=== PATIENT | female | born 1990 | race Caucasian/White ===

== ENCOUNTER 2016-03-15 15:30 | Inpatient (IN) | payer MEDICAID ==
[~2016-03-15] VITALS: Ht 154.9 cm; Wt 53.5 kg
[~2016-03-15 15:30] MED LIST: ACET160S3 GT; ALBU2.5V38 IH; BISA10SU61 RC; CHOL100044 GT; DOCU50LI GT; FERR220S2 GT; HYDR-3326 GT; IPRA0.2S9 IH; LEVE100S GT; MAGN400O6 GT
[2016-03-15 16:19] LABS: BASOPHILS % (AUTO) 0.3 % (0.0-2.0); DIFF TOTAL % 100 %; EOSINOPHILS # (AUTO) 0.5 /CMM (0.0-0.7); EOSINOPHILS % (AUTO) 3.6 % (0.0-6.0); HEMATOCRIT 36 % (33-45); HEMOGLOBIN 12.2 g/dL (11.5-14.8); LYMPHOCYTES # (AUTO) 3.6 /CMM (0.8-4.8); LYMPHOCYTES % (AUTO) 27.9 % (20.0-44.0); MEAN CORPUSCULAR HEMOGLOBIN 32 PG (26.0-33.0); MEAN CORPUSCULAR HGB CONC 34 g/dl (31.0-36.0); MEAN CORPUSCULAR VOLUME 93 fL (82-100); MONOCYTES % (AUTO) 7.5 % (2.0-12.0); NEUTROPHILS # (AUTO) 7.9 /CMM (1.8-8.9); NEUTROPHILS % (AUTO) 60.7 % (43.0-81.0); PLATELET COUNT (AUTO) 564 /CMM (150-450); RED BLOOD CELL COUNT(AUTO) 3.88 MIL/uL (4.0-5.2)
[2016-03-15] MEDS ORDERED: IV NS 0.9% 1,000 ML ONE ×3 (16:27→19:43)
[2016-03-15] MEDS ORDERED: IV SET PRIMARY 1 EA INFUS.SET MC ONE ×3 (16:27→19:43)
[2016-03-15] MEDS ORDERED: ACETAMINOPHEN 650 MG/SUPP.RECT RC ONE ×2 (16:27→17:00)
[2016-03-15 16:28] LABS: ANION GAP 27 (5-14); CALCIUM, SERUM 10.6 mg/dL (8.5-10.1); CARBON DIOXIDE 18 mmol/L (21-32); CHLORIDE 91 mmol/L (98-107); CREATININE 0.7 mg/dL (0.6-1.3); GFR 102 mL/min (>60); GLUCOSE 149 mg/dL (74-106); POTASSIUM 4.9 mmol/L (3.5-5.1); SODIUM SERUM 131 mmol/L (136-145); UREA NITROGEN, BLOOD 10 mg/dL (7-18)
[2016-03-15] MEDS ORDERED: IV NS 0.9% 1,000 ML BAG IV ONE ×3 (16:30→17:00)
[2016-03-15] MEDS ORDERED: LORAZEPAM INJ 2 MG/ML VIAL IV ONE ×2 (16:30→17:00)
[2016-03-15] MEDS ORDERED: LEVETIRACETAM (500MG) 500 MG in IV NS 0.9% 100 ML IV SCH (16:30)
[2016-03-15] MEDS ORDERED: LORAZEPAM INJ 2 MG/ML VIAL ONE (16:31)
[2016-03-15 16:32] LABS: INR 1.03 (0.87-1.13); PROTHROMBIN TIME 10.8 SECS (9.5-12.7)
[2016-03-15 16:34] LABS: ALANINE AMINOTRANSFERASE 52 U/L (12-78); ALBUMIN 3.6 g/dL (3.4-5.0); ASPARTATE AMINOTRANSFERASE 17 U/L (15-37); BILIRUBIN,TOTAL 0.2 mg/dL (0.2-1.0); INDIRECT BILIRUBIN 0.2 mg/dL (0.0-1.1); TOTAL PROTEIN, SERUM 9.1 g/dL (6.4-8.2)
[2016-03-15 16:37] LABS: TROPONIN I < 0.017 ng/mL (0.00-0.056)
[2016-03-15 16:56] LABS: LACTIC ACID 13.1 mmol/L (0.4-2.0)
[2016-03-15] MEDS ORDERED: IV SET PRIMARY PUMP SET 1 EA INFUS.SET MC ONE (16:59)
[2016-03-15] MEDS ORDERED: VANCOMYCIN 1 GM in IV D5W 250 ML IV ONE (17:00)
[2016-03-15] MEDS ORDERED: PIPERACILLIN /TAZOBACTAM 3.375 G in IV D5W 50 ML IV ONE (17:00)
[2016-03-15] MEDS: LEVETIRACETAM (500MG) 500 MG in IV NS 0.9% 100 ML IV SCH (17:06)
[2016-03-15 17:14] LABS: *LACTIC ACID REFLEX FLAG YES
[2016-03-15 18:15] LABS: KETONES,URINE Negative (NEGATIVE); LEUKOCYTE ESTERASE ,URINE Small (NEGATIVE); PH,URINE 7.5 (5.0-8.0)
[2016-03-15 18:16] LABS: ADD UA MICROSCOPIC YES
[2016-03-15 18:28] LABS: RBC,URINE 0-2 /HPF (0-2)
[2016-03-15 18:29] LABS: ADD URINE CULTURE YES
[2016-03-15 20:00] VITALS: BP 102/65
[2016-03-15 20:30] VITALS: BP 102/65
[2016-03-15] MEDS ORDERED: IV D5/0.45 NACL 1,000 ML IV PRN (23:30)
[2016-03-16] VITALS: BP 96/65
[2016-03-16] MEDS ORDERED: PIPERACILLIN /TAZOBACTAM 3.375 G VIAL IV ONE ×2 (00:08→04:53)
[2016-03-16] MEDS ORDERED: SECONDARY IV SET 1 EA INFUS.SET MC ONE (00:11)
[2016-03-16] MEDS ORDERED: IV D5W 50 ML IV ONE ×2 (00:11→04:53)
[2016-03-16] MEDS ORDERED: FIBERSOURCE HN 1,000 ML BOTTLE ONE (00:30)
[2016-03-16] MEDS ORDERED: IV D5/0.45 NACL 1,000 ML IV ONE (00:34)
[2016-03-16] MEDS ORDERED: IV SET PRIMARY PUMP SET 1 EA INFUS.SET MC ONE ×3 (00:34→16:50)
[2016-03-16] MEDS: PIPERACILLIN /TAZOBACTAM 3.375 G in IV D5W 50 ML IV SCH ×4 (00:49→18:06)
[2016-03-16 04:00] VITALS: BP 95/56
[2016-03-16] MEDS ORDERED: LEVETIRACETAM (500MG) 500 MG/5 ML VIAL IV ONE (05:46)
[2016-03-16] MEDS ORDERED: IV NS 0.9% 100 ML IV ONE (05:49)
[2016-03-16] MEDS: LEVETIRACETAM (500MG) 500 MG in IV NS 0.9% 100 ML IV SCH (05:52)
[2016-03-16 06:31] LABS: BASOPHILS % (AUTO) 0.3 % (0.0-2.0); EOSINOPHILS # (AUTO) 0.3 /CMM (0.0-0.7); HEMATOCRIT 30 % (33-45); HEMOGLOBIN 10.2 g/dL (11.5-14.8); LYMPHOCYTES # (AUTO) 1.4 /CMM (0.8-4.8); LYMPHOCYTES % (AUTO) 13.5 % (20.0-44.0); MEAN CORPUSCULAR HEMOGLOBIN 32 PG (26.0-33.0); MEAN CORPUSCULAR HGB CONC 34 g/dl (31.0-36.0); MEAN CORPUSCULAR VOLUME 94 fL (82-100); MONOCYTES # (AUTO) 0.8 /CMM (0.1-1.30); MONOCYTES % (AUTO) 8.2 % (2.0-12.0); NEUTROPHILS # (AUTO) 7.5 /CMM (1.8-8.9); PLATELET COUNT (AUTO) 479 /CMM (150-450); RED BLOOD CELL COUNT(AUTO) 3.21 MIL/uL (4.0-5.2)
[2016-03-16 06:51] LABS: ALBUMIN 2.9 g/dL (3.4-5.0); BILIRUBIN,TOTAL 0.1 mg/dL (0.2-1.0); CALCIUM, SERUM 9.4 mg/dL (8.5-10.1); CREATININE 0.5 mg/dL (0.6-1.3); POTASSIUM 3.9 mmol/L (3.5-5.1); TOTAL PROTEIN, SERUM 7.3 g/dL (6.4-8.2)
[2016-03-16 06:57] LABS: DIFF TOTAL % 100 %
[2016-03-16 07:53] LABS: KETONES,URINE NEGATIVE (NEGATIVE); LEUKOCYTE ESTERASE ,URINE 1+ (NEGATIVE)
[2016-03-16 08:00] VITALS: BP 103/64
[2016-03-16 08:08] LABS: ADD UA MICROSCOPIC YES
[2016-03-16 08:15] LABS: INDIRECT BILIRUBIN 0.1 mg/dL (0.0-1.1)
[2016-03-16 09:00] LABS: ADD URINE CULTURE YES; RBC,URINE NONE SEEN /HPF (0-2)
[2016-03-16] MEDS ORDERED: Z GUARD REMEDY 2 OZ OINT TP PRN (09:00)
[2016-03-16] MEDS: VANCOMYCIN 0.75 GM in IV D5W 250 ML IV SCH ×2 (09:10→16:50)
[2016-03-16] MEDS: Z GUARD REMEDY 2 OZ OINT TP SCH ×2 (11:33→16:58)
[2016-03-16] MEDS ORDERED: BISACODYL SUPP (10 MG) 10 MG/SUPP.RECT SUPP.RECT RC PRN (13:00)
[2016-03-16] MEDS ORDERED: IPRATROPIUM NEB FS 0.5 MG/2.5 ML AMPUL.NEB IH PRN (13:00)
[2016-03-16] MEDS ORDERED: MAGNESIUM HYDROXIDE 30 ML UDC GT PRN (13:00)
[2016-03-16] MEDS ORDERED: HYDROCODONE/APAP 5/325MG 1 EACH TABLET GT PRN (13:00)
[2016-03-16] MEDS ORDERED: ACETAMINOPHEN 650 MG/20.3 ML UDC GT PRN (13:00)
[2016-03-16] MEDS ORDERED: ALBUTEROL FS 2.5 MG/3 ML VIAL.NEB IH PRN (13:00)
[2016-03-16] MEDS: FERROUS SULFATE UDC 300 MG/5 ML UDC GT SCH ×2 (14:40→17:56)
[2016-03-16] MEDS: IPRATROPIUM NEB FS 0.5 MG/2.5 ML AMPUL.NEB IH SCH ×2 (15:21→19:38)
[2016-03-16] MEDS: ALBUTEROL FS 2.5 MG/3 ML VIAL.NEB IH SCH ×2 (15:22→19:38)
[2016-03-16] MEDS ORDERED: FEE PK DOSING 1 MIN EA MC ONE (15:35)
[2016-03-16 16:00] VITALS: BP 117/71
[2016-03-16] MEDS: LEVETIRACETAM SOL (5 ML) 100 MG/ML UDC GT SCH (16:53)
[2016-03-16 20:00] VITALS: BP 112/73
[2016-03-17] VITALS: BP 103/64
[2016-03-17] MEDS: PIPERACILLIN /TAZOBACTAM 3.375 G in IV D5W 50 ML IV SCH ×4 (00:08→18:00)
[2016-03-17] MEDS ORDERED: SECONDARY IV SET 1 EA INFUS.SET MC ONE ×3 (00:18→22:17)
[2016-03-17] MEDS ORDERED: IV NS 0.9% 250 ML IV ONE (00:18)
[2016-03-17] MEDS: VANCOMYCIN 0.75 GM in IV D5W 250 ML IV SCH ×3 (01:17→17:00)
[2016-03-17] MEDS: IPRATROPIUM NEB FS 0.5 MG/2.5 ML AMPUL.NEB IH SCH ×4 (01:43→19:57)
[2016-03-17] MEDS: ALBUTEROL FS 2.5 MG/3 ML VIAL.NEB IH SCH ×4 (01:43→19:57)
[2016-03-17 04:00] VITALS: BP 108/69
[2016-03-17] MEDS ORDERED: FIBERSOURCE HN 1,000 ML BOTTLE ONE (04:36)
[2016-03-17] MEDS: FIBERSOURCE HN 1,000 ML BOTTLE GT PRN (04:42)
[2016-03-17 08:00] VITALS: BP 110/73
[2016-03-17 08:08] LABS: BASOPHILS % (AUTO) 0.3 % (0.0-2.0); DIFF TOTAL % 100 %; EOSINOPHILS # (AUTO) 0.4 /CMM (0.0-0.7); EOSINOPHILS % (AUTO) 3.8 % (0.0-6.0); HEMATOCRIT 30 % (33-45); HEMOGLOBIN 10.3 g/dL (11.5-14.8); LYMPHOCYTES # (AUTO) 1.3 /CMM (0.8-4.8); LYMPHOCYTES % (AUTO) 13.4 % (20.0-44.0); MEAN CORPUSCULAR HEMOGLOBIN 32 PG (26.0-33.0); MEAN CORPUSCULAR HGB CONC 34 g/dl (31.0-36.0); MEAN CORPUSCULAR VOLUME 93 fL (82-100); MONOCYTES # (AUTO) 0.7 /CMM (0.1-1.30); MONOCYTES % (AUTO) 6.7 % (2.0-12.0); NEUTROPHILS # (AUTO) 7.6 /CMM (1.8-8.9); NEUTROPHILS % (AUTO) 75.8 % (43.0-81.0); PLATELET COUNT (AUTO) 524 /CMM (150-450); RED BLOOD CELL COUNT(AUTO) 3.26 MIL/uL (4.0-5.2)
[2016-03-17 08:21] LABS: CALCIUM, SERUM 9.8 mg/dL (8.5-10.1); CREATININE 0.6 mg/dL (0.6-1.3); POTASSIUM 4.1 mmol/L (3.5-5.1)
[2016-03-17] MEDS: DOCUSATE SODIUM LIQ 100 MG/10 ML UDC GT SCH (08:50)
[2016-03-17] MEDS: CHOLECALCIFEROL 1,000 UNIT TABLET (VIT D3) GT SCH (08:50)
[2016-03-17] MEDS: LEVETIRACETAM SOL (5 ML) 100 MG/ML UDC GT SCH ×2 (08:50→17:00)
[2016-03-17] MEDS: Z GUARD REMEDY 2 OZ OINT TP SCH ×2 (08:50→17:00)
[2016-03-17] MEDS: FERROUS SULFATE UDC 300 MG/5 ML UDC GT SCH ×3 (08:50→17:00)
[2016-03-17 16:00] VITALS: BP 116/81
[2016-03-17 20:00] VITALS: BP 105/62
[2016-03-17] MEDS ORDERED: IMIPENEM/CILASTATIN 500 MG/VIAL IV ONE (22:59)
[2016-03-17] MEDS ORDERED: IV NS 0.9% 100 ML IV ONE (23:02)
[2016-03-17] MEDS: IMIPENEM/CILASTATIN 500 MG in IV NS 0.9% 100 ML IV SCH (23:13)
[2016-03-18] MEDS: FIBERSOURCE HN 1,000 ML BOTTLE GT PRN (00:31)
[2016-03-18] MEDS: VANCOMYCIN 0.75 GM in IV D5W 250 ML IV SCH ×3 (01:29→17:37)
[2016-03-18] MEDS: IPRATROPIUM NEB FS 0.5 MG/2.5 ML AMPUL.NEB IH SCH ×3 (01:47→14:00)
[2016-03-18] MEDS: ALBUTEROL FS 2.5 MG/3 ML VIAL.NEB IH SCH ×3 (01:47→14:01)
[2016-03-18] MEDS ORDERED: IMIPENEM/CILASTATIN 500 MG/VIAL IV ONE (04:35)
[2016-03-18] MEDS ORDERED: IV NS 0.9% 100 ML IV ONE (04:38)
[2016-03-18] MEDS: IMIPENEM/CILASTATIN 500 MG in IV NS 0.9% 100 ML IV SCH (04:55)
[2016-03-18] MEDS ORDERED: IMIPENEM/CILASTATIN 500 MG in IV NS 0.9% 100 ML IV SCH (05:00)
[2016-03-18 06:45] LABS: BASOPHILS % (AUTO) 0.2 % (0.0-2.0); DIFF TOTAL % 100 %; EOSINOPHILS # (AUTO) 0.5 /CMM (0.0-0.7); EOSINOPHILS % (AUTO) 3.6 % (0.0-6.0); HEMATOCRIT 32 % (33-45); HEMOGLOBIN 10.9 g/dL (11.5-14.8); LYMPHOCYTES # (AUTO) 1.7 /CMM (0.8-4.8); LYMPHOCYTES % (AUTO) 13.3 % (20.0-44.0); MEAN CORPUSCULAR HEMOGLOBIN 32 PG (26.0-33.0); MEAN CORPUSCULAR HGB CONC 34 g/dl (31.0-36.0); MEAN CORPUSCULAR VOLUME 94 fL (82-100); MONOCYTES # (AUTO) 0.9 /CMM (0.1-1.30); MONOCYTES % (AUTO) 7.3 % (2.0-12.0); NEUTROPHILS # (AUTO) 9.4 /CMM (1.8-8.9); NEUTROPHILS % (AUTO) 75.6 % (43.0-81.0); PLATELET COUNT (AUTO) 638 /CMM (150-450); WHITE BLOOD COUNT (AUTO) 12.4 K/uL (4.3-11.0)
[2016-03-18 07:01] LABS: CALCIUM, SERUM 9.7 mg/dL (8.5-10.1); CREATININE 0.5 mg/dL (0.6-1.3); POTASSIUM 4.1 mmol/L (3.5-5.1)
[2016-03-18 08:00] VITALS: BP_SYST 110; BP_DIAS 56; BP_DIAS 86
[2016-03-18] MEDS: CHOLECALCIFEROL 1,000 UNIT TABLET (VIT D3) GT SCH (09:33)
[2016-03-18] MEDS: DOCUSATE SODIUM LIQ 100 MG/10 ML UDC GT SCH (09:33)
[2016-03-18] MEDS: LEVETIRACETAM SOL (5 ML) 100 MG/ML UDC GT SCH ×2 (09:33→17:37)
[2016-03-18] MEDS: Z GUARD REMEDY 2 OZ OINT TP SCH ×2 (09:34→17:38)
[2016-03-18] MEDS: FERROUS SULFATE UDC 300 MG/5 ML UDC GT SCH ×3 (09:39→17:37)
[2016-03-18] MEDS ORDERED: MEROPENEM 500 MG in IV NS 0.9% 50 ML IV SCH (13:00)
[2016-03-18 16:00] VITALS: BP 108/81
== END 2016-03-18 19:00 | DRG 720 ==
LOC: ER 15:32 → TELE 18:37 → MED 03-17 08:55
PROVIDERS: ADMIT Internal Medicine Rheumatology; ATTEND Internal Medicine Rheumatology
DX: A41.9 Sepsis, unspecified organism (principal); Z93.0 Tracheostomy status; I10 Essential (primary) hypertension; G40.909 Epilepsy, unspecified, not intractable, without status epilepticus; Z87.820 Personal history of traumatic brain injury; Z93.1 Gastrostomy status
CPT/HCPCS: 31720; 36415; 71010-TC; 80048-TC; 80076-TC; 80202-TC; 81000-TC; 83605-TC; 84484-TC; 85025-TC; 85730-TC; 87040-TC; 87070-TC; 87081-TC; 87086-TC; 87186-TC; 87400; 94640-TC; 94799-TC; 97001-TC; 97003-TC; A4216; A4606; A6402; J0743; J1953; J2060; J2185; J2543; J3370; J3490; J7030; J7050; J7060; Z7610

== ENCOUNTER 2016-06-13 08:01 | Inpatient (IN) | payer MEDICAID ==
[~2016-06-13] VITALS: Ht 160 cm; Wt 58.1 kg
[~2016-06-13 08:01] MED LIST changes: -ACET160S3 GT; +ACET650S26 GT
--- NOTE | 2016-06-13 08:12 | NUR ---
BBRA FROM [facility]: S/P WITNESSED SEIZURE. MVVFK=926.9 rectal temp. G-tube is intact with no s/s of infection. Skin is warm and non diaphoretic. Resp is even and unlabored with nad noted. IVHL left wrist 22g noted CAN FILLING AND CLOSING MACHINE TENDER. Dr Fernández at BS for eval.
[2016-06-13] MEDS ORDERED: IV SET PRIMARY 1 EA INFUS.SET MC ONE (08:29)
[2016-06-13] MEDS ORDERED: IV NS 0.9% 2,000 ML ONE (08:29)
[2016-06-13] MEDS ORDERED: ACETAMINOPHEN ES 500 MG TABLET ONE (08:29)
[2016-06-13] MEDS ORDERED: IV SET PRIMARY PUMP SET 1 EA INFUS.SET MC ONE ×2 (08:29→14:22)
[2016-06-13] MEDS ORDERED: CEFTRIAXONE 1GM BAG (ER ONLY) 50 ML IV ONE ×2 (08:30)
[2016-06-13] MEDS ORDERED: IV NS 0.9% 1,000 ML BAG IV ONE (08:30)
[2016-06-13] MEDS ORDERED: LEVOFLOXACIN 750 MG /D5W 150ML 150 ML IV ONE ×2 (08:30→09:53)
[2016-06-13] MEDS ORDERED: VANCOMYCIN 1 GM in IV D5W 250 ML IV ONE (08:30)
[2016-06-13] MEDS ORDERED: ACETAMINOPHEN ES 500 MG TABLET GT ONE (08:30)
[2016-06-13 08:53] LABS: BASOPHILS % (AUTO) 0.2 % (0.0-2.0); EOSINOPHILS # (AUTO) 0.1 /CMM (0.0-0.7); EOSINOPHILS % (AUTO) 0.5 % (0.0-6.0); HEMATOCRIT 40 % (33-45); HEMOGLOBIN 13.6 g/dL (11.5-14.8); LYMPHOCYTES # (AUTO) 1.6 /CMM (0.8-4.8); LYMPHOCYTES % (AUTO) 10.1 % (20.0-44.0); MEAN CORPUSCULAR HEMOGLOBIN 31 PG (26.0-33.0); MEAN CORPUSCULAR HGB CONC 34 g/dl (31.0-36.0); MEAN CORPUSCULAR VOLUME 91 fL (82-100); MONOCYTES # (AUTO) 0.7 /CMM (0.1-1.30); MONOCYTES % (AUTO) 4.7 % (2.0-12.0); NEUTROPHILS # (AUTO) 13.2 /CMM (1.8-8.9); NEUTROPHILS % (AUTO) 84.5 % (43.0-81.0); PLATELET COUNT (AUTO) 251 /CMM (150-450); RDW COEFFICIENT OF VARIATION 14.3 (11.5-15.0); RED BLOOD CELL COUNT(AUTO) 4.44 MIL/uL (4.0-5.2); WHITE BLOOD COUNT (AUTO) 15.6 K/uL (4.3-11.0)
[2016-06-13 08:59] LABS: APPEARANCE,URINE CLOUDY (CLEAR); BILIRUBIN,URINE NEGATIVE (NEGATIVE); BLOOD, URINE TRACE-INTA Ery/uL (NEGATIVE); COLOR,URINE YELLOW (YELLOW); KETONES,URINE NEGATIVE (NEGATIVE); LEUKOCYTE ESTERASE ,URINE 2+ (NEGATIVE); NITRITE, URINE POSITIVE (NEGATIVE); PH,URINE 6.5 (5.0-8.0); PROTEIN,URINE NEGATIVE (NEGATIVE); UGLUCOSE NEGATIVE (NEGATIVE); UROBILINOGEN,URINE 0.2 EU/dL (0.2)
[2016-06-13 09:03] LABS: CARBON DIOXIDE 30 mmol/L (21-32); CHLORIDE 96 mmol/L (98-107); CREATININE 0.7 mg/dL (0.6-1.3); GFR 101 mL/min (>60); GLUCOSE 79 mg/dL (74-106); POTASSIUM 3.3 mmol/L (3.5-5.1); SODIUM SERUM 133 mmol/L (136-145); UREA NITROGEN, BLOOD 10 mg/dL (7-18)
[2016-06-13 09:12] LABS: TROPONIN I < 0.017 ng/mL (0.00-0.056)
[2016-06-13 09:14] LABS: ADD URINE CULTURE YES; BACTERIA,URINE Moderate /HPF (None Seen); MUCUS,URINE Rare /LPF (None Seen); SQUAMOUS EPITHELIAL CELL,UR Few /HPF (None Seen)
--- NOTE | 2016-06-13 09:14 | NUR ---
Patient came back from CT via gurney. Patient remains in stable condition at this time.
[2016-06-13 09:15] LABS: PROTHROMBIN TIME 10.7 SECS (9.5-12.7)
[2016-06-13 09:19] LABS: LACTIC ACID 1.7 mmol/L (0.4-2.0)
[2016-06-13 09:25] LABS: ALANINE AMINOTRANSFERASE 77 U/L (12-78); ALBUMIN 3.8 g/dL (3.4-5.0); ALKALINE PHOSPHATASE 84 U/L (46-116); ASPARTATE AMINOTRANSFERASE 39 U/L (15-37); BILIRUBIN,DIRECT 0.1 mg/dL (0.0-0.2); BILIRUBIN,TOTAL 0.2 mg/dL (0.2-1.0); TOTAL PROTEIN, SERUM 8.3 g/dL (6.4-8.2)
--- NOTE | 2016-06-13 09:53 | NUR ---
REPORT GIVEN TO JOSE HALE FOR JENI TELE [phone]
[2016-06-13] MEDS ORDERED: CLON0.1T GT (10:06)
[2016-06-13] MEDS ORDERED: CRAN3875 GT (10:06)
[2016-06-13] MEDS ORDERED: NA P133E RC (10:06)
[2016-06-13] MEDS ORDERED: DEXA2TAB GT (10:06)
[2016-06-13] MEDS ORDERED: LACT-209 GT (10:06)
[2016-06-13] MEDS ORDERED: METO25TA6 GT (10:06)
[2016-06-13] MEDS ORDERED: OXCA600T5 GT (10:06)
[2016-06-13] MEDS ORDERED: LORA1TAB GT (10:06)
[2016-06-13] MEDS ORDERED: ACET650S26 GT (10:06)
--- NOTE | 2016-06-13 11:12 | NUR ---
CALLED NURSING STAB SETTER AND DRILLER FOR DO BED
--- NOTE | 2016-06-13 11:16 | NUR ---
LEFT MESSAGE ON DR MISAEL MADDOX'S CELL
--- NOTE | 2016-06-13 11:30 | NUR ---
DR NARVAEZ ON THE PHONE WITH DR MISAEL MADDOX
--- NOTE | 2016-06-13 11:37 | NUR ---
called for report, JOSE Prescott not available at the moment for report. Will call back in 15 minutes.
--- NOTE | 2016-06-13 11:50 | NUR ---
Report given to JOSE Prescott by JOSE Jacob for JENI DO 103
[2016-06-13] MEDS ORDERED: LORAZEPAM INJ 2 MG/ML VIAL ONE (13:45)
[2016-06-13] MEDS ORDERED: SECONDARY IV SET 1 EA INFUS.SET MC ONE (14:21)
[2016-06-13] MEDS ORDERED: IV D5/0.45 NACL 1,000 ML IV PRN (14:30)
[2016-06-13] MEDS ORDERED: Z GUARD REMEDY 2 OZ OINT TP PRN (14:30)
[2016-06-13] MEDS ORDERED: FEE PK DOSING 1 MIN EA MC ONE (14:56)
[2016-06-13] MEDS ORDERED: MAGNESIUM HYDROXIDE 30 ML UDC GT PRN (15:00)
[2016-06-13] MEDS ORDERED: BISACODYL SUPP (10 MG) 10 MG/SUPP.RECT SUPP.RECT RC PRN (15:00)
[2016-06-13] MEDS ORDERED: IPRATROPIUM NEB FS 0.5 MG/2.5 ML AMPUL.NEB IH PRN (15:00)
[2016-06-13] MEDS ORDERED: NA PHOS,M-B/NA PHOS,DI-BA 1 EA ENEMA RC PRN (15:00)
[2016-06-13] MEDS ORDERED: ALBUTEROL FS 2.5 MG/3 ML VIAL.NEB IH PRN (15:00)
[2016-06-13] MEDS ORDERED: CLONIDINE HCL 0.1 MG TABLET GT PRN (15:00)
[2016-06-13] MEDS: LEVETIRACETAM SOL (5 ML) 100 MG/ML UDC GT SCH ×2 (15:09→20:14)
[2016-06-13] MEDS: OXCARBAZEPINE 150 MG TABLET GT SCH ×2 (15:09→20:10)
[2016-06-13] MEDS: CEFEPIME 1 GM in IV D5W 50 ML IV SCH (15:35)
[2016-06-13] MEDS: PROSOURCE / PROSTAT (PYXIS) 30 ML UDC GT SCH (15:35)
[2016-06-13] MEDS: METRONIDAZOLE 500MG/ NS 100ML 500 MG in PREMIX 1 EA IV SCH (15:35)
[2016-06-13 16:00] VITALS: BP 96/56
[2016-06-13 16:18] VITALS: BP 96/56
[2016-06-13] MEDS ORDERED: OXCARBAZEPINE 600 MG GT SCH (17:00)
[2016-06-13] MEDS: VANCOMYCIN 0.75 GM in IV D5W 250 ML IV SCH (17:26)
--- NOTE | 2016-06-13 18:25 | NUR ---
HIDE PASTER PT IS VERY CONTRACTED UNABLE TO PROPERLY OFF LOAD EXTREMITIES DID MY BEST ELEVATING LOWER EXTREMITIES ON SEVERAL PILLOWS AND PLACED PILLOWS UNDER UPPER ARMS TO OFF LOAD
[2016-06-13] MEDS: ALBUTEROL FS 2.5 MG/3 ML VIAL.NEB IH SCH (19:37)
[2016-06-13] MEDS: IPRATROPIUM NEB FS 0.5 MG/2.5 ML AMPUL.NEB IH SCH (19:37)
[2016-06-13 20:00] VITALS: BP 111/68
[2016-06-13] MEDS: ACETAMINOPHEN 650 MG/20.3 ML UDC GT PRN (20:09)
[2016-06-13 22:00] VITALS: BP 137/77
[2016-06-14] VITALS: BP 137/77
[2016-06-14] MEDS: METRONIDAZOLE 500MG/ NS 100ML 500 MG in PREMIX 1 EA IV SCH ×4 (00:12→23:30)
[2016-06-14] MEDS: CEFEPIME 1 GM in IV D5W 50 ML IV SCH ×3 (00:12→16:45)
--- NOTE | 2016-06-14 00:53 | NUR ---
RN NOTE. INITIAL ASSESSMENT. RECEIVED THE PT REST ON THE BED. TRACH TO VENT CONNECTED. PORTEX#7,OXYGEN T PIECE CONNECTED . SAT 98% TRUCK DRIVING INSTRUCTOR SHOWING S TACH.TEMPERATURE 100.NPO. IV RT HAND 18G AND 22G. IVF D51/2NS 100ML/H,HOB ELEVATED. TURN AND REPOSITION Q2H. WILL CONTINUE TO MONITOR VITALS.
[2016-06-14] MEDS: IPRATROPIUM NEB FS 0.5 MG/2.5 ML AMPUL.NEB IH SCH ×4 (01:07→19:52)
[2016-06-14] MEDS: ALBUTEROL FS 2.5 MG/3 ML VIAL.NEB IH SCH ×4 (01:07→19:52)
[2016-06-14] MEDS: OXCARBAZEPINE 150 MG TABLET GT SCH ×3 (02:51→20:00)
[2016-06-14] MEDS: VANCOMYCIN 0.75 GM in IV D5W 250 ML IV SCH ×2 (02:52→10:14)
--- NOTE | 2016-06-14 03:38 | NUR ---
RN NOTE AM CARE. ORAL CARE, BED BATH GIVEN. LINEN CHANGED. REMAINING SAME OXYGEN TOLERATED WELL, SAT 98%. NO ACUTE DISTRESS NOTED. LABORATORY PHLEBOTOMIST SHOWING NSR. IV RT HAND 22G. IVF D51/2NS 100ML/H.GT CLAMPED. HOB ELEVATED. TURN AND REPOSITION Q2H. WILL CONTINUE TO MONITOR VITALS. 3TIMES FOCAL SEIZURE NOTED. LAST 4SECONDS.
[2016-06-14 04:00] VITALS: BP_SYST 132; BP_SYST 135; BP_DIAS 60; BP_DIAS 74
[2016-06-14] MEDS: ACETAMINOPHEN 650 MG/20.3 ML UDC GT PRN ×3 (04:57→20:00)
[2016-06-14] MEDS: LEVETIRACETAM SOL (5 ML) 100 MG/ML UDC GT SCH ×3 (04:57→20:31)
--- NOTE | 2016-06-14 07:00 | NUR ---
DO INITIAL NOTE- RECEIVED PT OBTUNDED, OPENS EYES BUT DOES NOT FOLLOW COMMANDS. ON T-PIECE, FIO2 28%. TELE MONITOR REVEALS SINUS TACHYCARDIA, HR= 115. PT INCONTINENT OF URINE & STOOL, DIAPER CLEAN & DRY. G-TUBE PRESENT AND CURRENTLY CLAMPED. TWO IVS PRESENT: 1) RFA 18G HL AND 2) RIGHT HAND 22G RUNNING D5 1/2NS @ 100 MLS/HR. SAFETY MEASURES TAKEN: BED LOCKED AND IN LOW POSITION, SIDE RAILS UP X2 AND BED ALARM ON, WILL CONTINUE TO MONITOR.
[2016-06-14] MEDS ORDERED: SECONDARY IV SET 1 EA INFUS.SET MC ONE ×2 (07:57→10:08)
[2016-06-14 08:00] VITALS: BP 129/57
[2016-06-14] MEDS: PROSOURCE / PROSTAT (PYXIS) 30 ML UDC GT SCH ×2 (08:02→16:45)
[2016-06-14] MEDS: CHOLECALCIFEROL 1,000 UNIT TABLET (VIT D3) GT SCH (08:03)
[2016-06-14 08:34] LABS: CALCIUM, SERUM 8.5 mg/dL (8.5-10.1); CREATININE 0.5 mg/dL (0.6-1.3); POTASSIUM 3.3 mmol/L (3.5-5.1)
[2016-06-14] MEDS ORDERED: IV D5/ 0.9% NACL 1,000 ML IV PRN (10:30)
--- NOTE | 2016-06-14 10:35 | NUR ---
WOUND CARE CONSULT: PT PRESENTS WITH INTACT SKIN AND LARGE AREAS OF SCARRING TO LEGS. PT IS INCONTINENT AND IMMOBILE WITH LOWER EXTREMITY CONTRACTURES. PT IS TRACH DEPENDENT. FIRST STEP MATTRESS ORDERED. PT TO BE TURNED AND REPOSITIONED EVERY 2 HRS PT CONDITION PERMITS, HEELS FLOATED. ALL SKIN PROTECTION RECOMMENDATIONS DISCUSSED WITH NURSING STAFF. MD IN AGREEMENT WITH PLAN OF CARE. Addendum: 06/14/16 at 1037 by DENICE HICKMAN WNDNU Amended: Links added.
[2016-06-14] MEDS ORDERED: POTASSIUM CHLORIDE 20 MEQ POWDER PACKET NG SCH (11:00)
--- NOTE | 2016-06-14 11:00 | NUR ---
PT HYPERVENTILATION. O2 SATS AT 95% ON T-PIECE, FI02 OF 28%. STAT ABG DONE BY RT WITH RESULTS: 1) PH= 7.40, PaCO2- 29.1, PAo2- 66.7, Hco3- 17.9. RT INFORMED DR. MCGOVERN WITH NO NEW ORDERS AT THIS TIME. WILL CONTINUE TO MONITOR.
[2016-06-14 12:00] VITALS: BP 146/80
--- NOTE | 2016-06-14 13:00 | NUR ---
CALLED AND SPOKE TO DR. MADDOX, UPDATED HIM ON PT'S CURRENT CONDITION: 1) PT TACHYCARDIC, HR RANGING [id number]. INFORMED MD OF PT'S CURRENT TEMP AT 12 PM (100.2) AND TYLENOL/ ICE PACKS WERE GIVEN. PT TACHYPNEIC, RESPIRATIONS 30 BREATHS/MIN. OBTAINED ONE TIME ORDER FOR ATIVAN 1 MG STAT. 2) INFORMED MD PT HAD 2 EPISODES OF VOMITING LAST NIGHT ( ENDORSED BY PREVIOUS NURSE), NO EPISODES OF VOMITING DURING MY SHIFT. OBTAINED ORDER FOR ZOFRAN 4 MG IVP Q4H PRN NAUSEA/VOMITING. 3) PT HARD STICK AND GETTING MULTIPLE IV ANTIBIOTICS. CURRENT IV ACCESS IS IN THE RIGHT HAND. OBTAINED ORDER FOR MIDLINE INSERTION. ALL ORDERS PLACED AND CARRIED OUT. WILL CONTINUE TO MONITOR. Addendum: 06/14/16 at 1401 by CHATO GONSALES RN ALSO OBTAINED ORDER FOR ATIVAN 2 MG IVP Q2H PRN SEIZURE. INFORMED PT WAS HAVING SMALL SEIZURES LAST NIGHT BY PREVIOUS NURSE.
[2016-06-14] MEDS ORDERED: LORAZEPAM INJ 2 MG/ML VIAL IV PRN (13:30)
[2016-06-14] MEDS ORDERED: LORAZEPAM INJ 2 MG/ML VIAL IV ONE (13:30)
[2016-06-14] MEDS ORDERED: ONDANSETRON HCL/PF 4 MG/2 ML VIAL IV PRN (13:30)
[2016-06-14 13:48] LABS: ABG BASE EXCESS -5.4 mmol/L; ABG OXYGEN SATURATION 92.9 % (92.0-98.5); ABG PCO2 29.1 mmHg (35.0-45.0); ABG PH 7.408 (7.350-7.450); ABG PO2 66.7 mmHg (75.0-100.0); ABG TOTAL HEMOGLOBIN 13.8 G/dL (12.0-16.0); AaDO2 98.6 mmHg; COHb 1.1 % (0.5-1.5); MetHb 0.5 % (0.0-1.5); O2Hb 91.4 % (94.0-97.0); SITE, ABG Right Brachial; VENT MODE, BG CA 28%
[2016-06-14 16:00] VITALS: BP 91/55
[2016-06-14] MEDS: VANCOMYCIN 1 GM in IV D5W 250 ML IV SCH (17:44)
[2016-06-14 20:00] VITALS: BP 96/88
--- NOTE | 2016-06-14 20:15 | NUR ---
TIMBER CRUISER:RECEIVED PT REST ON THE BED. TRACH TO VENT CONNECTED. PORTEX#7,OXYGEN VIA T PIECE FIO2 60% SAT 98% CART DRIVER SHOWING SINUS RHYTHM. AFEBRILE AT THIS TIME.NPO. RIGHT UPPER ARM MIDLINE IVF D51/2NS 100ML/H,HOB ELEVATED. TURN AND REPOSITION Q2H. WILL CONTINUE TO MONITOR VITALS.
[2016-06-14] MEDS: FIBERSOURCE HN 1,000 ML BOTTLE GT PRN (22:42)
[2016-06-14] MEDS ORDERED: IV NS 0.9% 1,000 ML ONE (23:34)
--- NOTE | 2016-06-14 23:35 | NUR ---
RN NOTES - KRUGER CATHETER INSERTION KRUGER CATHETER INSERTED PER MD ORDERS, TOLERATED PROCEDURE WELL.
--- NOTE | 2016-06-14 23:45 | NUR ---
STOKER ERECTOR AND SERVICER; RECEIVED PHONE CALL FROM DR CASTAÑEDA, NEW ORDERS LABS IN AM, INSERT KRUGER CATH, COLLECT URINE FOR SODIUM IN AM. CHANGED IV FLUID TO NS AT 100 ML/HR AND START FEEDING PER TOLERANCE ORDERED BY DR MADDOX. WILL CARRY OUT ALL ORDERS.
[2016-06-15] VITALS: BP 99/58
[2016-06-15] MEDS ORDERED: IV NS 0.9% 1,000 ML IV PRN
[2016-06-15] MEDS: CEFEPIME 1 GM in IV D5W 50 ML IV SCH ×4 (00:12→22:46)
[2016-06-15] MEDS: VANCOMYCIN 1 GM in IV D5W 250 ML IV SCH ×3 (01:22→18:57)
[2016-06-15] MEDS: ALBUTEROL FS 2.5 MG/3 ML VIAL.NEB IH SCH ×4 (01:38→19:51)
[2016-06-15] MEDS: IPRATROPIUM NEB FS 0.5 MG/2.5 ML AMPUL.NEB IH SCH ×4 (01:39→19:51)
[2016-06-15] MEDS ORDERED: VANCOMYCIN 1.25 GM in IV D5W 500 ML IV SCH (02:00)
[2016-06-15 04:00] VITALS: BP 91/55
[2016-06-15] MEDS: LEVETIRACETAM SOL (5 ML) 100 MG/ML UDC GT SCH ×2 (05:16→13:36)
[2016-06-15 07:01] LABS: BASOPHILS % (AUTO) 0.1 % (0.0-2.0); EOSINOPHILS # (AUTO) 0.2 /CMM (0.0-0.7); EOSINOPHILS % (AUTO) 0.9 % (0.0-6.0); HEMATOCRIT 36 % (33-45); HEMOGLOBIN 12.2 g/dL (11.5-14.8); LYMPHOCYTES # (AUTO) 1.1 /CMM (0.8-4.8); LYMPHOCYTES % (AUTO) 6.9 % (20.0-44.0); MEAN CORPUSCULAR HEMOGLOBIN 31 PG (26.0-33.0); MEAN CORPUSCULAR HGB CONC 34 g/dl (31.0-36.0); MEAN CORPUSCULAR VOLUME 91 fL (82-100); MONOCYTES % (AUTO) 5.8 % (2.0-12.0); NEUTROPHILS # (AUTO) 14.4 /CMM (1.8-8.9); NEUTROPHILS % (AUTO) 86.3 % (43.0-81.0); PLATELET COUNT (AUTO) 213 /CMM (150-450); RDW COEFFICIENT OF VARIATION 14.4 (11.5-15.0); RED BLOOD CELL COUNT(AUTO) 3.92 MIL/uL (4.0-5.2); WHITE BLOOD COUNT (AUTO) 16.6 K/uL (4.3-11.0)
--- NOTE | 2016-06-15 07:56 | NUR ---
INITIAL DO RN NOTE RCVD PT WITH EYES OPEN, NON-VERBAL, UNABLE TO FOLLOW COMMANDS OR DIRECTION OF VOICE. ON COOL AEROSOL TOLERATING WELL. ST ON TELE HR 102. GTUBE PLACEMENT VERIFIED. NO TUBE FEEDING RESIDUAL OBSERVED. KRUGER DRAINING YELLOW URINE. EULALIA MIDLINE C/D/I/PATENT. NO S/O INFILTRATION OR PHLEBITIS OBSERVED. IVF INFUSING. CALL LIGHT WITHIN REACH. BED IN LOW AND LOCKED POSITION. WILL CONTINUE TO MONITOR PT FOR SAFETY AND COMFORT.
[2016-06-15 08:00] VITALS: BP 108/73
[2016-06-15] MEDS: METRONIDAZOLE 500MG/ NS 100ML 500 MG in PREMIX 1 EA IV SCH ×3 (08:29→22:46)
[2016-06-15] MEDS: PROSOURCE / PROSTAT (PYXIS) 30 ML UDC GT SCH ×2 (08:30→17:47)
[2016-06-15] MEDS: CHOLECALCIFEROL 1,000 UNIT TABLET (VIT D3) GT SCH (08:30)
[2016-06-15 08:31] LABS: CALCIUM, SERUM 8.1 mg/dL (8.5-10.1); CREATININE 0.5 mg/dL (0.6-1.3); MAGNESIUM 1.6 mg/dL (1.8-2.4); PHOSPHORUS 1.8 mg/dL (2.5-4.9)
[2016-06-15] MEDS: OXCARBAZEPINE 150 MG TABLET GT SCH ×2 (09:37→20:17)
--- NOTE | 2016-06-15 09:41 | NUR ---
DO RN NOTE DR. LLANOS ORDERED TRILEPTAL LEVEL WHICH WAS DRAWN YESTERDAY BY LAB. RESULTS PENDING PER JUANITA AT LAB RESULTS WILL NOT BE IN UNTIL SUNDAY. SPOKE WITH JEREMY FROM PHARMACY AND SHE STATED THAT IT WAS OK TO GIVE IT SINCE IT SEEMS THAT DR. LLANOS REDUCED THE TRILEPTAL DOSE WHILE WAITING FOR THE LEVEL. MEDICATION ADMINISTERED.
[2016-06-15 12:00] VITALS: BP 115/65
[2016-06-15] MEDS ORDERED: SECONDARY IV SET 1 EA INFUS.SET MC ONE (13:19)
[2016-06-15] MEDS: Magnesium 1GM/D5W 100ML PREMIX 100 ML IV SCH ×2 (13:37→17:47)
[2016-06-15] MEDS: POTASSIUM CHLORIDE 20 MEQ POWDER PACKET GT SCH ×3 (13:37→16:29)
--- NOTE | 2016-06-15 13:47 | NUR ---
DO RN NOTE PT HAS 330ML OF TUBE FEEDING RESIDUAL. DR. MADDOX CALLED MESSAGE LEFT TO CALL BACK WITH FURTHER ORDERS. TUBE FEEDING STOPPED FOR NOW. HOB ELEVATED. WILL CONTINUE TO MONITOR PT.
--- NOTE | 2016-06-15 14:05 | NUR ---
DO RN NOTE DR. MADDOX ACKNOWLEDGED RECEIPT OF MESSAGE. NO NEW ORDERS RCVD.
[2016-06-15 16:00] VITALS: BP 126/66
--- NOTE | 2016-06-15 16:05 | NUR ---
DO RN NOTE PT'S RESIDUAL 240 ML TUBE FEEDING CONTINUES TO BE STOPPED. WILL CONTINUE TO MONITOR PT. HOB ELEVATED.
[2016-06-15] MEDS ORDERED: NEUTRA PHOS 1 POWD.PACKET NG ONE (17:00)
--- NOTE | 2016-06-15 18:34 | NUR ---
DO RN NOTE PT CONTINUES TO BE NON-VERBAL, UNABLE TO TRACK WITH EYES OR FOLLOW NURSE'S VOICE. ST ON TELE. TOLERATING COOL AEROSOL. G-TUBE REMAINS CLAMPED WAITING RESIDUAL TO DECREASE. KRUGER IN PLACE DRAINING CLOUDY, ADOLPH COLORED URINE. EULALIA MIDLINE C/D/I/PATENT. IVF INFUSING. NO S/O INFILTRATION OR PHLEBITIS OBSERVED. PT'S CARE WILL BE ENDORSED TO TRACK COACH RN FOR CONTINUITY OF CARE AT CHANGE OF SHIFT. COOLING MEASURES STARTED FOR TEMP 100.3. RICKY DRY WALL INSTALLATIONS MECHANIC FOR ID INFORMED AND BLOOD CX X2 COLLECTED BY LAB. PENDING VANCO TROUGH RESULTS TO ADMINISTER VANCO SCHEDULED FOR 1700 WILL ENDORSE TO TRACK COACH IF NEEDED.
[2016-06-15] MEDS: METOCLOPRAMIDE HCL 10 MG/2 ML VIAL IM SCH (18:48)
[2016-06-15 20:00] VITALS: BP 135/69
[2016-06-15] MEDS: LEVETIRACETAM (500MG) 500 MG in IV NS 0.9% 100 ML IV SCH (20:18)
--- NOTE | 2016-06-15 20:43 | NUR ---
PROGRAM DIRECTOR SCOUTING DF I RECEIVED PT TO ROOM@103. PT WITH HX OF TBI PT OBTUNDED SPONTANEOUS EYE OPENING NOTED,RIGID IN BUE/BLE.PT RESPONSIVE TO TACTILE STIMULATION WITHDRAWS TO STIMULI. PT NSR ON MONITOR RATE OF 70. PT WITH GTUBE FEEDINGS ON HOLD 2ND HIGH RESIDUALS. RESIDUALS DURING DAY SHIFT OF 350 @2000 RESIDUALS OF 250ML.FEEDING CONTINUED ON HOLD, I WILL RECHECK RESIDUALS IN 1-2 HOURS ( TAN AWARE OF HIGH RESIDUALS. VSS. NO FEVERS, NAD NOTED.
--- NOTE | 2016-06-15 22:35 | NUR ---
RN DO MCGEE PT PRIMARY MD MADDOX AT BEDSIDE DISCUSSED POC, ORDERS RECEIVED FOR LABS/UA.
[2016-06-16] VITALS: BP 133/66
--- NOTE | 2016-06-16 01:00 | NUR ---
PT FEEDING RESIDUALS LESS THAN A 100ML, I RESTARTED FEEDING AT ORDERED RATE, I WILL MONITOR FOR FEEDING TOLERANCE/RESIDUALS Q 1 HOUR. VSS.NAD NOTED.
[2016-06-16] MEDS: ALBUTEROL FS 2.5 MG/3 ML VIAL.NEB IH SCH ×4 (01:15→19:22)
[2016-06-16] MEDS: IPRATROPIUM NEB FS 0.5 MG/2.5 ML AMPUL.NEB IH SCH ×4 (01:15→19:22)
[2016-06-16] MEDS: FIBERSOURCE HN 1,000 ML BOTTLE GT PRN (01:45)
[2016-06-16] MEDS: METOCLOPRAMIDE HCL 10 MG/2 ML VIAL IM SCH ×4 (01:45→19:38)
[2016-06-16] MEDS: VANCOMYCIN 1.25 GM in IV D5W 500 ML IV SCH ×3 (01:45→18:42)
[2016-06-16 04:00] VITALS: BP 127/65
[2016-06-16] MEDS: LEVETIRACETAM (500MG) 500 MG in IV NS 0.9% 100 ML IV SCH (04:14)
[2016-06-16 06:33] LABS: BASOPHILS % (AUTO) 0.2 % (0.0-2.0); EOSINOPHILS # (AUTO) 0.1 /CMM (0.0-0.7); EOSINOPHILS % (AUTO) 1.1 % (0.0-6.0); HEMATOCRIT 30 % (33-45); HEMOGLOBIN 10.2 g/dL (11.5-14.8); MEAN CORPUSCULAR HEMOGLOBIN 31 PG (26.0-33.0); MEAN CORPUSCULAR HGB CONC 34 g/dl (31.0-36.0); MEAN CORPUSCULAR VOLUME 91 fL (82-100); MONOCYTES # (AUTO) 0.5 /CMM (0.1-1.30); MONOCYTES % (AUTO) 5.6 % (2.0-12.0); NEUTROPHILS # (AUTO) 7.7 /CMM (1.8-8.9); NEUTROPHILS % (AUTO) 82.1 % (43.0-81.0); PLATELET COUNT (AUTO) 210 /CMM (150-450); RDW COEFFICIENT OF VARIATION 14.1 (11.5-15.0); RED BLOOD CELL COUNT(AUTO) 3.28 MIL/uL (4.0-5.2); WHITE BLOOD COUNT (AUTO) 9.3 K/uL (4.3-11.0)
[2016-06-16] MEDS: CEFEPIME 1 GM in IV D5W 50 ML IV SCH ×2 (06:45→15:03)
[2016-06-16 06:49] LABS: CREATININE 0.3 mg/dL (0.6-1.3); MAGNESIUM 1.8 mg/dL (1.8-2.4); PHOSPHORUS 2.3 mg/dL (2.5-4.9); POTASSIUM 3.2 mmol/L (3.5-5.1)
--- NOTE | 2016-06-16 07:37 | NUR ---
INITIAL DO RN NOTE RCVD PT WITH EYES OPEN, UNABLE TO TRACK WITH EYES OR FOLLOW ANY TYPE OF COMMANDS. SR ON TELE HR 86. ON COOL AEROSOL, TOLERATING WELL. PEG PLACEMENT VERIFIED. NO RESIDUAL OBTAINED. KRUGER DRAINING PALE YELLOW URINE WITH SEDIMENT. EULALIA MIDLINE C/D/I/PATENT. IVF INFUSING. NO S/O INFILTRATION OR PHLEBITIS OBSERVED. WILL CONTINUE TO MONITOR PT FOR SAFETY AND COMFORT. CALL LIGHT WITHIN REACH. BED IN LOW AND LOCKED POSITION.
[2016-06-16] MEDS: METRONIDAZOLE 500MG/ NS 100ML 500 MG in PREMIX 1 EA IV SCH ×2 (07:56→15:31)
[2016-06-16 08:00] VITALS: BP 97/58
[2016-06-16] MEDS: PROSOURCE / PROSTAT (PYXIS) 30 ML UDC GT SCH ×2 (08:04→16:26)
[2016-06-16] MEDS: CHOLECALCIFEROL 1,000 UNIT TABLET (VIT D3) GT SCH (08:04)
[2016-06-16] MEDS: OXCARBAZEPINE 150 MG TABLET GT SCH ×2 (08:04→20:35)
[2016-06-16] MEDS ORDERED: SECONDARY IV SET 1 EA INFUS.SET MC ONE ×2 (09:40→12:32)
[2016-06-16 12:00] VITALS: BP 102/72
[2016-06-16] MEDS: POTASSIUM CL. PREMIX PERIPHER. 50 ML IV SCH ×4 (12:42→17:56)
[2016-06-16] MEDS: LEVETIRACETAM SOL (5 ML) 100 MG/ML UDC PEG SCH ×2 (12:42→20:35)
--- NOTE | 2016-06-16 13:01 | NUR ---
DO RN NOTE NO RESIDUAL OBSERVED UPON ASSESSMENT. TUBE FEEDING RATE INCREASED TO GOAL RATE OF 50ML/HR WILL CONTINUE TO MONITOR.
--- NOTE | 2016-06-16 13:41 | NUR ---
DO RN NOTE SPOKE WITH DR. MADDOX IN UNIT HE STATES THAT PT WILL BE D/C BACK TO HER FACILITY, CONTINUE ABX UNTIL SundayJune, AND RESUME ALL HER [facility] MEDICATIONS.
[2016-06-16 16:00] VITALS: BP 118/57
[2016-06-16] MEDS ORDERED: NEUTRA PHOS 1 POWD.PACKET GT ONE (16:00)
--- NOTE | 2016-06-16 17:46 | NUR ---
DO RN NOTE REPORT CALLED IN TO [facility] AND GIVEN TO TAVO, NURSING HOTSHOT SUPERINTENDENT. SHE WAS INFORMED THAT PT'S INGREDIENT SCALER HELPER SCHEDULED FOR 2029. SHE ACKNOWLEDGED INFORMATION.
--- NOTE | 2016-06-16 19:05 | NUR ---
DO RN NOTE PT REMAINS NON-VERBAL, UNABLE TO TRACK WITH EYES. SR ON TELE HR 99. TOLERATING COOL AEROSOL. SATURATION >95%. TOLERATING ORDERED TUBE FEEDING RATE. NO RESIDUAL OBSERVED UPON ASPIRATING. KRUGER IN PLACE DRAINING YELLOW URINE. EULALIA MIDLINE C/D/I/PATENT. NO S/O INFILTRATION OR PHLEBITIS OBSERVED. IVF INFUSING. CALL LIGHT WITHIN REACH. BED IN LOW AND LOCKED POSITION. PT'S CARE WILL BE ENDORSED TO HERD TESTER RN AT CHANGE OF SHIFT.
[2016-06-16 20:00] VITALS: BP 108/58
--- NOTE | 2016-06-16 20:00 | NUR ---
Received patient awake but not tracking non verbal.With 35% cool aerosol via trach. Suctioned moderate white secretions.SPO2 97%.No distress noted.Tele monitoring shows ST 108.GT feeding in progress with HOB elevated..Noted residual 200 ml.Hold feeding at this time.Abdomen soft BS active.FC to gravity drainage with pamela urine.Turned and repositioned offloading pressure points.IVF infusing via EULALIA MID Line site intact.
--- NOTE | 2016-06-16 22:35 | NUR ---
Patient discharge to [facility] via gurney accompanied by MED RESPONSE PARAMEDICS in stable condition.Discharge papers given and report given to Nelly.VS stable.No belongings.
== END 2016-06-16 23:52 | DRG 720 ==
LOC: ER 08:04 → TELE 09:48 → TELE-TD 11:33
PROVIDERS: ADMIT Internal Medicine Rheumatology; ATTEND Internal Medicine Rheumatology
PROC: 05H533Z Insertion of Infusion Device into Right Subclavian Vein, Percutaneous Approach (ICD-10-PCS; principal; 2016-06-14)
DX: A41.9 Sepsis, unspecified organism (principal); G93.40 Encephalopathy, unspecified; Z99.11 Dependence on respirator [ventilator] status; J96.11 Chronic respiratory failure with hypoxia; J95.851 Ventilator associated pneumonia; Z93.0 Tracheostomy status; N39.0 Urinary tract infection, site not specified; H70.92 Unspecified mastoiditis, left ear; Z87.820 Personal history of traumatic brain injury; E87.1 Hypo-osmolality and hyponatremia; Z79.899 Other long term (current) drug therapy; Z86.718 Personal history of other venous thrombosis and embolism; G40.909 Epilepsy, unspecified, not intractable, without status epilepticus; I10 Essential (primary) hypertension; J32.9 Chronic sinusitis, unspecified; Y81.3 Surgical instruments, materials and general- and plastic-surgery devices (including sutures) associated with adverse incidents; Y84.8 Other medical procedures as the cause of abnormal reaction of the patient, or of later complication, without mention of misadventure at the time of the procedure; Y92.129 Unspecified place in nursing home as the place of occurrence of the external cause; B96.89 Other specified bacterial agents as the cause of diseases classified elsewhere; R13.10 Dysphagia, unspecified; Z98.2 Presence of cerebrospinal fluid drainage device; Z93.1 Gastrostomy status; D64.9 Anemia, unspecified; J98.11 Atelectasis
CPT/HCPCS: 31720; 36415; 36600; 70450-TC; 71010-TC; 80048-TC; 80076-TC; 80202-TC; 81000-TC; 82542; 83605-TC; 83735-TC; 84100-TC; 84300-TC; 84484-TC; 85025-TC; 85730-TC; 87040-TC; 87081-TC; 87086-TC; 87186-TC; 94640-TC; 94664-TC; A4216; A4606; J0692; J0696; J1953; J1956; J2060; J2765; J3370; J3475; J3480; J3490; J7030; J7042; J7060; Z7610

== ENCOUNTER 2016-08-26 13:16 | Inpatient (IN) | payer MEDICAID, OTHER ==
[~2016-08-26] VITALS: Ht 152.4 cm; Wt 61.2 kg
[~2016-08-26 13:16] MED LIST changes: +CLON0.1T GT; +CRAN3875 GT; +DEXA2TAB GT; -FERR220S2 GT; -HYDR-3326 GT; +LACT-209 GT; +LORA1TAB GT; +METO25TA6 GT; +NA P133E RC; +OXCA600T5 GT
[2016-08-26 13:20] VITALS: BP 90/53
--- NOTE | 2016-08-26 13:20 | NUR ---
MARKUS BARFIELD FROM SNF, STAFF REPORTS WITNESSED SEIZURE . BS FIELD 234. AWAITING MD ORDER. PLACED ON MONITOR.
[2016-08-26] MEDS ORDERED: LORAZEPAM INJ 2 MG/ML VIAL ONE ×3 (13:24→14:02)
--- NOTE | 2016-08-26 13:24 | NUR ---
LINE STARTED ON R FOOT G [address] PEMBERTON PT MEDICATED WITH ATIVAN 2MG IVP TO R FOOT G 20
--- NOTE | 2016-08-26 13:39 | NUR ---
Annamaria lowery in [facility] - 08/26/16 at 1419 by GIL LINE STARTED ON R BRANDEN G Ajith
--- NOTE | 2016-08-26 13:39 | NUR ---
VERBAL ORDER ANOTHER DOSE OF ATIVAN 2MG IV FROM DR PEMBERTON
[2016-08-26] MEDS ORDERED: ACETAMINOPHEN ES 500 MG TABLET GT ONE (14:00)
[2016-08-26] MEDS ORDERED: LORAZEPAM INJ 2 MG/ML VIAL IVP ONE (14:00)
[2016-08-26] MEDS ORDERED: IV NS 0.9% 1,000 ML BAG IV ONE ×2 (14:00→16:00)
[2016-08-26] MEDS ORDERED: LEVETIRACETAM (500MG) 1,000 MG in IV NS 0.9% 100 ML IV ONE (14:00)
[2016-08-26 14:01] LABS: BASOPHILS # (AUTO) 0.4 /CMM (0.0-0.2); EOSINOPHILS # (AUTO) 0.1 /CMM (0.0-0.7); EOSINOPHILS % (AUTO) 0.3 % (0.0-6.0); HEMATOCRIT 28 % (33-45); HEMOGLOBIN 9.4 g/dL (11.5-14.8); LYMPHOCYTES # (AUTO) 2.1 /CMM (0.8-4.8); LYMPHOCYTES % (AUTO) 9.8 % (20.0-44.0); MEAN CORPUSCULAR HEMOGLOBIN 30 PG (26.0-33.0); MEAN CORPUSCULAR HGB CONC 34 g/dl (31.0-36.0); MEAN CORPUSCULAR VOLUME 90 fL (82-100); MONOCYTES # (AUTO) 0.8 /CMM (0.1-1.30); MONOCYTES % (AUTO) 3.6 % (2.0-12.0); NEUTROPHILS # (AUTO) 17.8 /CMM (1.8-8.9); NEUTROPHILS % (AUTO) 84.3 % (43.0-81.0); PLATELET COUNT (AUTO) 397 /CMM (150-450); RED BLOOD CELL COUNT(AUTO) 3.12 MIL/uL (4.0-5.2); WHITE BLOOD COUNT (AUTO) 21.2 K/uL (4.3-11.0)
[2016-08-26] MEDS ORDERED: ACETAMINOPHEN ES 500 MG TABLET ONE (14:08)
--- NOTE | 2016-08-26 14:08 | NUR ---
WITNESSED FULL TONIC CLONIC SEIZURE NOTED. DR. PEMBERTON AT BEDSIDE PT MEDICATED ORDERED WITH ATIVAN 2MG IV
[2016-08-26 14:12] LABS: CALCIUM, SERUM 9.1 mg/dL (8.5-10.1); CARBON DIOXIDE 18 mmol/L (21-32); CHLORIDE 95 mmol/L (98-107); CREATININE 1.3 mg/dL (0.6-1.3); GLUCOSE 207 mg/dL (74-106); SODIUM SERUM 131 mmol/L (136-145); UREA NITROGEN, BLOOD 21 mg/dL (7-18)
[2016-08-26 14:18] LABS: ALANINE AMINOTRANSFERASE 22 U/L (12-78); ALBUMIN 3.3 g/dL (3.4-5.0); ALKALINE PHOSPHATASE 98 U/L (46-116); ASPARTATE AMINOTRANSFERASE 17 U/L (15-37); BILIRUBIN,DIRECT 0.1 mg/dL (0.0-0.2); BILIRUBIN,TOTAL 0.2 mg/dL (0.2-1.0); TOTAL PROTEIN, SERUM 8.3 g/dL (6.4-8.2)
[2016-08-26] MEDS ORDERED: LORAZEPAM INJ 2 MG/ML VIAL IV ONE ×2 (14:30)
--- NOTE | 2016-08-26 14:44 | NUR ---
PT UNABLE TO URINATE . VERBAL ORDER DR PEMBERTON IN AND OUT CATH FOR URINE SAMPLE
--- NOTE | 2016-08-26 14:55 | NUR ---
URINE SAMPLE COLLECTED SENT TO LAB
--- NOTE | 2016-08-26 15:08 | NUR ---
PATIENT ASSIGNED TO DO BRIGHT
--- NOTE | 2016-08-26 15:08 | NUR ---
DO 103
[2016-08-26 15:12] LABS: APPEARANCE,URINE Clear (CLEAR); BILIRUBIN,URINE Negative (NEGATIVE); BLOOD, URINE Trace-intact Ery/uL (NEGATIVE); COLOR,URINE Yellow (YELLOW); KETONES,URINE Negative (NEGATIVE); LEUKOCYTE ESTERASE ,URINE Large (NEGATIVE); NITRITE, URINE Negative (NEGATIVE); PH,URINE 5.5 (5.0-8.0); PROTEIN,URINE Negative (NEGATIVE); UGLUCOSE Negative (NEGATIVE); UROBILINOGEN,URINE 0.2 EU/dL (0.2)
--- NOTE | 2016-08-26 15:17 | NUR ---
GAVE REPORT TO KAILA GARCIA DO ROOM 103 ADMITTING DX STATUS EPILEPTICUS . WAITING FOR ACCEPTING MD. WILL TRANSFER VIA ACLL PROTOCOL
--- NOTE | 2016-08-26 15:19 | NUR ---
RECEIVED CUFFLESS TRACH PT FROM ER. VERBAL ORDER GIVEN BY ER DR. PEMBERTON TO KEEP PT ON VENTILATOR. PLACED PT ON A/C 14, VT 500, FIO2 40%. PT TOLERATES, NO RESPIRATORY DISTRESS NOTED. RED OUTLET PLUGGED IN, AMBU BAG AT BEDSIDE.
[2016-08-26 15:20] VITALS: BP 98/50
[2016-08-26 15:25] LABS: BACTERIA,URINE Few /HPF (None Seen); RBC,URINE 0-2 /HPF (0-2); YEAST,URINE Moderate /HPF (None Seen)
[2016-08-26 15:26] LABS: SQUAMOUS EPITHELIAL CELL,UR Many /HPF (None Seen)
[2016-08-26 15:42] LABS: BAND % (MANUAL) 5 % (0.0-5.0); LYMPHOCYTES % (MANUAL) 12 % (16-48); MONOCYTES % (MANUAL) 5 % (0-11.0); NEUTROPHILS % (MANUAL) 78 (42-76)
--- NOTE | 2016-08-26 15:53 | NUR ---
CALLED DR MADDOX'S ANSWERING SERVICE. DR MADDOX NOT RUG SCRATCHER
--- NOTE | 2016-08-26 15:56 | NUR ---
PAGED ABBEY JACKSON DNP FOR PANEL ADMISSION
[2016-08-26] MEDS ORDERED: MEROPENEM 1 G in IV NS 0.9% 100 ML IV ONE (16:00)
[2016-08-26] MEDS ORDERED: VANCOMYCIN 0.75 GM in IV D5W 250 ML IV ONE (16:00)
[2016-08-26 16:43] VITALS: BP 95/54
--- NOTE | 2016-08-26 16:55 | NUR ---
PAGED ABBEY JACKSON DNP FOR ADMISSION
--- NOTE | 2016-08-26 18:56 | NUR ---
VERBAL ORDER FROM DR PEMBERTON TO PUT PT BACK TO COOL AEROSOL AT 6 LPM . SATING 100 %. NO SOB
--- NOTE | 2016-08-26 18:57 | NUR ---
TRANSFER VIA ACLS PROTOCOL IN STABLE CONDITION.
--- NOTE | 2016-08-26 19:30 | NUR ---
DO RN INITIAL NOTES RECEIVED PATIENT ASLEEP, OPENS EYES TO PAIN, ON TPIECE FIO2 40%, TRACH C/D/I. NO RESPIRATORY DISTRESS NOTED. ON TELE MONITOR SINUS RHYTHM. NO S/S OF PAIN OR DISCOMFORT. SKIN WARM AND DRY TO TOUCH. WITH RIGHT THUMB 20G PATENT AND INTACT, RIGHT FOOT 20G PATENT AND INTACT. WITH GT PATENT AND INTACT, IN PLACE. NO RESIDUAL NOTED. PENDING ADMISSION ORDERS. HOB KEPT ELEVATED. SIDE RAILS UP AND LOCKED. SEIZURE PRECAUTIONS OBSERVED. WILL CONTINUE TO MONITOR.
--- NOTE | 2016-08-26 19:40 | NUR ---
D/C'D VENT PER DR PEMBERTON ORDERS. PT PLACED ON COOL AEROSOL 40%
[2016-08-26 20:00] VITALS: BP_SYST 112; BP_SYST 117; BP_DIAS 69; BP_DIAS 71
[2016-08-26] MEDS ORDERED: CLONIDINE HCL 0.1 MG TABLET GT PRN (23:00)
[2016-08-26] MEDS ORDERED: BISACODYL SUPP (10 MG) 10 MG/SUPP.RECT SUPP.RECT RC PRN (23:00)
[2016-08-26] MEDS ORDERED: ACETAMINOPHEN 650 MG/20.3 ML UDC GT PRN ×2 (23:00)
[2016-08-26] MEDS ORDERED: IPRATROPIUM NEB FS 0.5 MG/2.5 ML AMPUL.NEB IH PRN (23:00)
[2016-08-26] MEDS ORDERED: ONDANSETRON HCL/PF 4 MG/2 ML VIAL IVP PRN (23:00)
[2016-08-26] MEDS ORDERED: Z GUARD REMEDY 2 OZ OINT TP PRN (23:00)
[2016-08-26] MEDS ORDERED: MAGNESIUM HYDROXIDE 30 ML UDC GT PRN (23:00)
[2016-08-26] MEDS ORDERED: NA PHOS,M-B/NA PHOS,DI-BA 1 EA ENEMA RC PRN (23:00)
[2016-08-26] MEDS ORDERED: LORAZEPAM 1 MG TABLET GT PRN (23:00)
[2016-08-26] MEDS ORDERED: ALBUTEROL FS 2.5 MG/3 ML VIAL.NEB IH PRN (23:00)
[2016-08-26] MEDS ORDERED: FIBERSOURCE HN 1,000 ML BOTTLE GT PRN (23:30)
[2016-08-26] MEDS: IV NS 0.9% 1,000 ML IV PRN (23:31)
[2016-08-27] VITALS: BP 99/59
[2016-08-27] MEDS ORDERED: ALBUTEROL FS 2.5 MG/3 ML VIAL.NEB ONE (01:39)
[2016-08-27] MEDS ORDERED: IPRATROPIUM NEB FS 0.5 MG/2.5 ML AMPUL.NEB ONE (01:39)
[2016-08-27] MEDS: IPRATROPIUM NEB FS 0.5 MG/2.5 ML AMPUL.NEB IH SCH ×4 (01:42→19:31)
[2016-08-27] MEDS: ALBUTEROL FS 2.5 MG/3 ML VIAL.NEB IH SCH ×4 (01:42→19:32)
[2016-08-27 04:00] VITALS: BP 96/49
[2016-08-27] MEDS ORDERED: CEFEPIME 1 GM VIAL ONE (04:43)
[2016-08-27] MEDS ORDERED: CEFEPIME 2 GM in IV D5W 100 ML IV SCH (05:00)
[2016-08-27 06:33] LABS: ALBUMIN 2.9 g/dL (3.4-5.0); BILIRUBIN,TOTAL 0.2 mg/dL (0.2-1.0); CREATININE 0.9 mg/dL (0.6-1.3); POTASSIUM 3.5 mmol/L (3.5-5.1); TOTAL PROTEIN, SERUM 7.4 g/dL (6.4-8.2)
[2016-08-27 06:58] LABS: BASOPHILS % (AUTO) 0.3 % (0.0-2.0); EOSINOPHILS # (AUTO) 0.2 /CMM (0.0-0.7); EOSINOPHILS % (AUTO) 1.4 % (0.0-6.0); HEMATOCRIT 28 % (33-45); HEMOGLOBIN 9.2 g/dL (11.5-14.8); LYMPHOCYTES # (AUTO) 2.1 /CMM (0.8-4.8); LYMPHOCYTES % (AUTO) 17.9 % (20.0-44.0); MEAN CORPUSCULAR HEMOGLOBIN 30 PG (26.0-33.0); MEAN CORPUSCULAR HGB CONC 33 g/dl (31.0-36.0); MEAN CORPUSCULAR VOLUME 91 fL (82-100); MONOCYTES # (AUTO) 0.9 /CMM (0.1-1.30); MONOCYTES % (AUTO) 7.6 % (2.0-12.0); NEUTROPHILS # (AUTO) 8.5 /CMM (1.8-8.9); NEUTROPHILS % (AUTO) 72.8 % (43.0-81.0); PLATELET COUNT (AUTO) 309 /CMM (150-450); RDW COEFFICIENT OF VARIATION 19.3 (11.5-15.0); RED BLOOD CELL COUNT(AUTO) 3.06 MIL/uL (4.0-5.2); WHITE BLOOD COUNT (AUTO) 11.6 K/uL (4.3-11.0)
--- NOTE | 2016-08-27 06:58 | NUR ---
DO RN CLOSING NOTES NO SIGNIFICANT CHANGES OVERNIGHT. NO RESPIRATORY DISTRESS NOTED. SUCTIONED NEEDED. SPO2 100%. NO SEIZURE ACTIVITY NOTED. ALL DUE MEDS GIVEN. WITH GTF TOLERATING WELL, PATENT AND INTACT. IVF RUNNING. PATIENT KEPT CLEAN AND DRY. TURNED AND REPOSITIONED Q2 AND PRN. HOB KEPT ELEVATED. SIDE RAILS UP AND LOCKED. BED KEPT AT LOWEST POSITION. WILL ENDORSE CONTINUITY OF CARE TO AM NURSE.
[2016-08-27 07:24] LABS: THYROID STIMULATING HORMONE 3.07 uIU/mL (0.358-3.74)
[2016-08-27] MEDS: DEXAMETHASONE 4 MG TABLET GT SCH ×3 (07:51→16:48)
[2016-08-27] MEDS: DOCUSATE SODIUM LIQ 100 MG/10 ML UDC GT SCH ×2 (07:51→09:08)
[2016-08-27] MEDS: OXCARBAZEPINE 150 MG TABLET GT SCH ×3 (07:52→16:48)
[2016-08-27] MEDS: METOPROLOL TARTRATE 25 MG TABLET GT SCH ×3 (07:52→16:48)
[2016-08-27] MEDS: CHOLECALCIFEROL 1,000 UNIT TABLET (VIT D3) GT SCH ×2 (07:52→09:09)
[2016-08-27 08:00] VITALS: BP 116/62
--- NOTE | 2016-08-27 08:00 | NUR ---
TELE1/RN AM SHIFT INITIAL NOTES RECEIVED PT AWAKE IN BED, OPEN EYES, NON-VERBAL, NO ACUTE CHANGE OF CONDITION NOTED. ON COOL AEROSOL @ 40% FIO2 SATURATING @ 100%, LUNG SOUNDS DIMINISHED, SUCTIONED FOR AIRWAY CLEARANCE. ON TELE WITH SINUS RHYTHM, HR 82. WITH ON GOING IV HYDRATION OF NS @ 75CC/HR, IV SITES PATENT WITH NO S/S OF INFECTION. GTF ON GOING @ 60CC/HR, PATENT, NO GASTRIC RESIDUAL NOTED, FLUSHED. PT IS COMFORTABLE AT THIS TIME. SCHEDULED AM MEDS TO BE GIVEN. CL WITHIN REACHED AND SAFETY MAINTAINED. ON GOING MONITORING.
--- NOTE | 2016-08-27 08:04 | NUR ---
pt. received on 40% cool aerosol/ 10 lpm o2 flow. [facility] vent on stdby @ bedside. Addendum: 08/27/16 at 0805 by RILEY MONTOYA RT Amended: Links added.
--- NOTE | 2016-08-27 08:37 | NUR ---
TD/RN ROUNDS - DR. HARRINGTON PT SEEN & EXAMINED BY DR. HARRINGTON. WITH NEW VERBAL ORDERS RECEIVED TO INCREASE KEPPRA TO 1000MG BID AND OXCARBAZEPINE LEVEL (TO ADD TO AM LABS). ORDERS NOTED AND CARRIED. ON GOING MONITORING.
[2016-08-27] MEDS ORDERED: FEE PK DOSING 1 MIN EA MC ONE (08:55)
[2016-08-27] MEDS ORDERED: LEVETIRACETAM SOL (5 ML) 100 MG/ML UDC GT SCH (09:00)
[2016-08-27] MEDS: LEVETIRACETAM SOL (5 ML) 100 MG/ML UDC GT SCH ×2 (09:08→20:47)
[2016-08-27] MEDS: CEFEPIME 1 GM in IV D5W 50 ML IV SCH ×2 (09:58→16:49)
[2016-08-27] MEDS: VANCOMYCIN 1 GM in IV D5W 250 ML IV SCH ×2 (09:58→18:55)
[2016-08-27 12:00] VITALS: BP 103/48
--- NOTE | 2016-08-27 12:48 | NUR ---
TELE1/RN ROUNDS - DR. JACKSON PT SEEN & EXAMINED BY DR. JACKSON. WITH NEW ORDER RECEIVED FOR LOVENOX 40MG SC DAILY FOR DVT PROPHYLAXIS. ORDER NOTED AND CARRIED.
[2016-08-27] MEDS: ENOXAPARIN SODIUM 40 MG/0.4 ML DISP.SYRIN SQ SCH (13:00)
[2016-08-27 16:00] VITALS: BP 109/55
--- NOTE | 2016-08-27 16:00 | NUR ---
TELE1/RN AFTERNOON ROUNDS PM CARE PROVIDED, NO CHANGE OF CONDITION. MONITORING CONTINUED.
[2016-08-27] MEDS: IV NS 0.9% 1,000 ML IV PRN (17:04)
[2016-08-27] MEDS: FIBERSOURCE HN 1,000 ML BOTTLE GT PRN (17:04)
--- NOTE | 2016-08-27 19:30 | NUR ---
RADIOLOGY RN INITIAL NOTE PT RECEIVED RESTING IN BED. NON VERBAL WITH OPEN EYES. ON COOL AEROSOL WITH FIO2 40% AND SATURATING WELL. BREATHING REGULAR EVEN AND UNLABORED. TELE- SINUS RHYTHM 78. IV R FOOT #20 AND R THUMB #20 CLEAN, DRY, PATENT AND INTACT. GTUBE CLEAN, PATENT, FLUSHING WELL AND IN PLACE. GTUBE FEEDING TOLERATED FAIR WITH 30 ML RESIDUAL NOTED. HOB UP AT 35 DEGREE ANGLE. WILL CONTINUE TO MONITOR.
--- NOTE | 2016-08-27 19:59 | NUR ---
TELE1/RN AM SHIFT END NOTES ALL NEEDS MET. NO ACUTE CHANGE OF CONDITION NOTED DURING THE SHIFT. NEEDS MET. PT ENDORSED TO PM NURSE TO CONTINUE CARE. CL WITHIN REACHED AND SAFETY MAINTAINED.
[2016-08-27 20:00] VITALS: BP 113/71
[2016-08-28] VITALS: BP 98/60
[2016-08-28] MEDS: CEFEPIME 1 GM in IV D5W 50 ML IV SCH ×3 (00:37→16:52)
[2016-08-28] MEDS: VANCOMYCIN 1 GM in IV D5W 250 ML IV SCH ×2 (01:24→10:00)
[2016-08-28] MEDS: ALBUTEROL FS 2.5 MG/3 ML VIAL.NEB IH SCH ×3 (01:54→13:18)
[2016-08-28] MEDS: IPRATROPIUM NEB FS 0.5 MG/2.5 ML AMPUL.NEB IH SCH ×3 (01:55→13:18)
[2016-08-28 04:00] VITALS: BP 100/65
--- NOTE | 2016-08-28 06:37 | NUR ---
FINANCIAL LEGAL ASSISTANT CLOSING NOTE PT REMAINED STABLE DURING SHIFT. NO ACUTE DISTRESS NOTED AND SATURATING WELL. ALL NEEDS ATTENDED TO PROMPTLY. ALL SAFETY MEASURES IN PLACE. REPOSITIONED Q2H. GTUBE IN PLACE AND FEEDING WELL TOLERATED AT THIS TIME. IV INTACT AND PATENT. WILL ENDORSE TO NEXT SHIFT FOR CONTINUITY OF CARE.
[2016-08-28 06:46] LABS: BASOPHILS % (AUTO) 0.4 % (0.0-2.0); EOSINOPHILS # (AUTO) 0.2 /CMM (0.0-0.7); EOSINOPHILS % (AUTO) 2.2 % (0.0-6.0); HEMATOCRIT 25 % (33-45); HEMOGLOBIN 8.7 g/dL (11.5-14.8); LYMPHOCYTES # (AUTO) 2.4 /CMM (0.8-4.8); LYMPHOCYTES % (AUTO) 26.4 % (20.0-44.0); MEAN CORPUSCULAR HEMOGLOBIN 31 PG (26.0-33.0); MEAN CORPUSCULAR HGB CONC 34 g/dl (31.0-36.0); MEAN CORPUSCULAR VOLUME 89 fL (82-100); MONOCYTES # (AUTO) 0.6 /CMM (0.1-1.30); MONOCYTES % (AUTO) 6.7 % (2.0-12.0); NEUTROPHILS % (AUTO) 64.3 % (43.0-81.0); PLATELET COUNT (AUTO) 265 /CMM (150-450); RDW COEFFICIENT OF VARIATION 19.2 (11.5-15.0); RED BLOOD CELL COUNT(AUTO) 2.84 MIL/uL (4.0-5.2); WHITE BLOOD COUNT (AUTO) 9.3 K/uL (4.3-11.0)
[2016-08-28 07:08] LABS: CALCIUM, SERUM 8.7 mg/dL (8.5-10.1); CREATININE 0.7 mg/dL (0.6-1.3); MAGNESIUM 1.6 mg/dL (1.8-2.4); PHOSPHORUS 2.7 mg/dL (2.5-4.9)
--- NOTE | 2016-08-28 07:28 | NUR ---
RN INITIAL NOTE REPORT RECEIVED FROM ALPHONSO SHIFT FOR JENI. PT NON-VERBAL OPENS EYES. TELE SR. VENT SETTINGS PORTEX #7, COOL AEROSOL 10L FIO2 40 %. GTF PALCENT AND INTACT. FIBERSOURCE 60 ML/HR. IV R FOOT # 20G, R THUMB # 20 G NS @ 75 ML/HR PATENT AND INTACT. WILL CONTINUE TO MONITOR CLOSELY. ALL SAFETY MEASURES IN PLACE.
[2016-08-28 08:00] VITALS: BP 111/64
[2016-08-28] MEDS: DOCUSATE SODIUM LIQ 100 MG/10 ML UDC GT SCH (08:15)
[2016-08-28] MEDS: DEXAMETHASONE 4 MG TABLET GT SCH ×2 (08:15→16:52)
[2016-08-28] MEDS: OXCARBAZEPINE 150 MG TABLET GT SCH ×2 (08:15→16:51)
[2016-08-28] MEDS: LEVETIRACETAM SOL (5 ML) 100 MG/ML UDC GT SCH ×2 (08:15→20:23)
[2016-08-28] MEDS: CHOLECALCIFEROL 1,000 UNIT TABLET (VIT D3) GT SCH (08:36)
[2016-08-28] MEDS: METOPROLOL TARTRATE 25 MG TABLET GT SCH ×2 (08:37→16:51)
[2016-08-28] MEDS: ENOXAPARIN SODIUM 40 MG/0.4 ML DISP.SYRIN SQ SCH (08:44)
--- NOTE | 2016-08-28 10:54 | NUR ---
RN NOTE CALLED PHARMACY HELD [facility] 08/28/16 30.
[2016-08-28] MEDS: FIBERSOURCE HN 1,000 ML BOTTLE GT PRN (11:17)
--- NOTE | 2016-08-28 11:20 | NUR ---
WOUND CARE CONSULT PATIENT SEEN AND SKIN ASSESSED. MULTIPLE AREAS OF OLD SCARING ON THE LEFT HIP AND THIGH NOTED; APPEAR TO HAVE BEEN AN OLD GRAFT SITE AT ONE TIME. ALL SCABS AND SKIN ISSUES NOTED TO BE POA. RECOMMEND ZGUARD DAILY AND PRIN SOILING, Q2H TURNING, AND MEPILEX TO PROTECT SARAH PROMINENCE ON LEFT ANKLE. PATIENT CURRENTLY ON STRIKER GEL MATTRESS, RECOMMEND ISOFLEX AIR MATTRESS FOR PATIENT. DISCUSSED ALL RECOMMENDATIONS WITH RNROBERT. WILL FOLLOW PATIENT NEEDED. Addendum: 08/28/16 at 1125 by MANUEL VELEZ RN Amended: Links added.
[2016-08-28 12:00] VITALS: BP 115/62
[2016-08-28] MEDS: IV NS 0.9% 1,000 ML IV PRN (12:19)
[2016-08-28] MEDS: Magnesium 1GM/D5W 100ML PREMIX 100 ML IV SCH ×2 (12:20→13:49)
[2016-08-28 16:00] VITALS: BP 149/83
[2016-08-28 16:51] VITALS: BP 149/83
[2016-08-28] MEDS ORDERED: LEVE1000 PO (16:56)
--- NOTE | 2016-08-28 19:26 | NUR ---
RN CLOSING NOTE REPORT GIVEN TO ALPHONSO PM SHIFT FOR JENI. PT NON-VERBAL OPENS EYES. TELE SR. VENT SETTINGS PORTEX #7, COOL AEROSOL 5L FIO2 28 %. GTF FIBERSOURCE NO RESIDUAL TOLERATED FEEDING THROUGH PUT SHIFT. IV R FOOT # 20G, R THUMB # 20 G NS @ 75 ML/HR PATENT AND INTACT. AWAITING DC VIA AMBULANCE TO [facility]. REPORT GIVEN TO TAVO GARCIA. ALL DC INSTRUCTION AND FORMS FILLED OUT AND IN CHART. PHOTOS TAKEN LESS THEN 24 HOURS IN CHART. ALL SAFETY MEASURES IN PLACE.
--- NOTE | 2016-08-28 19:33 | NUR ---
MODEL ARTISTS' INITIAL NOTE RECEIVED PT IN BED. NO RESPIRATORY DISTRESS NOTED. VENT SETTINGS WELL TOLERATED. BREATHING EVEN AND UNLABORED. PT WITH OPEN EYES. IV SITES INTACT AND PATENT. GTUBE IN PLACE AND FEEDING WELL TOLERATED WITHOUT RESIDUALS. CALL LIGHT WITHIN REACH. AWAITING TRANSPORTATION FOR DISCHARGE BACK TO FACILITY. REPORT GIVEN BY ROBERT GARCIA THAT SPOKE WITH ELTON FROM FACILITY AND GAVE REPORT ALREADY. WILL CONTINUE TO MONITOR.
--- NOTE | 2016-08-28 20:37 | NUR ---
RN CLOSING NOTE PT PICKED UP BY 2 EMT'S FROM [facility]. NO ACUTE DISTRESS NOTED. ON COOL AEROSOL WITH 5L OF O2 AND WELL TOLERATED. PT TRANSFERRED SAFELY AND WITH NO C/O PAIN. VITAL SIGNS WNL. KEPPRA 10ML VIA GTUBE GIVEN ORDERED AND WELL TOLERATED BEFORE TRANSPORT. GTUBE IN PLACE AND CLAMPED. BOTH IV SITES D/C'D. PT LEFT UNIT SAFELY VIA GURNEY.
[2016-08-29] MEDS ORDERED: VANCOMYCIN 1 GM in IV D5W 250 ML IV SCH (09:00)
== END 2016-08-28 20:34 | DRG 53 ==
LOC: ER 13:19 → TELE-TD 18:29 → TELE1 08-27 10:30
PROVIDERS: ADMIT Nurse Practitioner Acute Care; ATTEND Nurse Practitioner Acute Care
PROC: 5A1935Z Respiratory Ventilation, Less than 24 Consecutive Hours (ICD-10-PCS; principal; 2016-08-26)
DX: G40.901 Epilepsy, unspecified, not intractable, with status epilepticus (principal); G93.1 Anoxic brain damage, not elsewhere classified; Z99.11 Dependence on respirator [ventilator] status; G91.9 Hydrocephalus, unspecified; J96.10 Chronic respiratory failure, unspecified whether with hypoxia or hypercapnia; R53.2 Functional quadriplegia; Z93.0 Tracheostomy status; R13.10 Dysphagia, unspecified; N39.0 Urinary tract infection, site not specified; D63.8 Anemia in other chronic diseases classified elsewhere; E87.1 Hypo-osmolality and hyponatremia; F41.9 Anxiety disorder, unspecified; I10 Essential (primary) hypertension; I25.10 Atherosclerotic heart disease of native coronary artery without angina pectoris; Z87.820 Personal history of traumatic brain injury; Z93.1 Gastrostomy status; B37.49 Other urogenital candidiasis; Z16.35 Resistance to multiple antimicrobial drugs
CPT/HCPCS: 31720; 36415; 71010-TC; 80048-TC; 80053-TC; 80061-TC; 80076-TC; 80202-TC; 81000-TC; 82542; 83605-TC; 83735-TC; 84100-TC; 84443-TC; 85025-TC; 87040-TC; 87081-TC; 87086-TC; 94003-TC; 94640-TC; A4606; A6403; J0692; J1650; J1953; J2060; J2185; J3370; J3475; J7030; J7060; J8540

== ENCOUNTER 2016-10-02 23:41 | Inpatient (IN) | payer OTHER ==
[~2016-10-02] VITALS: Ht 162.6 cm; Wt 59.9 kg
[~2016-10-02 23:41] MED LIST changes: +LEVE1000 PO; -LEVE100S GT
--- NOTE | 2016-10-02 23:50 | NUR ---
PT BIBA#86 [facility] AND SENT TO ER FOR ELEVATED TEMP AND DECREASED O2 SAT'S. UPON ARRIVAL TO ER, PATIENT IS AWAKE, RESPONSIVE TO LIGHT PAIN, OPENS EYES, NONVERBAL, TACHYPENEIC AT 28-32, AMBUBAG ONGONIG TO TRACH. KEPT HOB ELEVATED. KEPT AIRWAY PATENT. RT AT BEDSIDE TO PLACE MECH VENT. PLACED ON CARDIAC AND VS MONITORING. AWAITING FOR ER MD SO.
--- NOTE | 2016-10-02 23:50 | NUR ---
started a saline lock on the left foot g20, blood drawn and sent to lab.
[2016-10-02 23:54] VITALS: BP 153/126
[2016-10-02] MEDS ORDERED: ACETAMINOPHEN 650 MG/SUPP.RECT RC ONE (23:57)
[2016-10-03] VITALS (7 sets, daily range): BP systolic 98–132; BP diastolic 61–79
[2016-10-03] MEDS ORDERED: ACETAMINOPHEN 650 MG/SUPP.RECT RC ONE
[2016-10-03 00:04] LABS: EOSINOPHILS # (AUTO) 0.1 /CMM (0.0-0.7); EOSINOPHILS % (AUTO) 0.2 % (0.0-6.0); HEMATOCRIT 31 % (33-45); HEMOGLOBIN 10.7 g/dL (11.5-14.8); LYMPHOCYTES # (AUTO) 1.4 /CMM (0.8-4.8); LYMPHOCYTES % (AUTO) 3.7 % (20.0-44.0); MEAN CORPUSCULAR HEMOGLOBIN 31 PG (26.0-33.0); MEAN CORPUSCULAR HGB CONC 34 g/dl (31.0-36.0); MEAN CORPUSCULAR VOLUME 91 fL (82-100); MONOCYTES # (AUTO) 1.3 /CMM (0.1-1.30); MONOCYTES % (AUTO) 3.3 % (2.0-12.0); NEUTROPHILS # (AUTO) 36.1 /CMM (1.8-8.9); NEUTROPHILS % (AUTO) 92.8 % (43.0-81.0); PLATELET COUNT (AUTO) 409 /CMM (150-450); RDW COEFFICIENT OF VARIATION 16.5 (11.5-15.0); RED BLOOD CELL COUNT(AUTO) 3.46 MIL/uL (4.0-5.2)
[2016-10-03 00:14] LABS: CALCIUM, SERUM 9.6 mg/dL (8.5-10.1); CARBON DIOXIDE 28 mmol/L (21-32); CHLORIDE 97 mmol/L (98-107); CREATININE 0.9 mg/dL (0.6-1.3); GLUCOSE 104 mg/dL (74-106); POTASSIUM 3.4 mmol/L (3.5-5.1); SODIUM SERUM 136 mmol/L (136-145); UREA NITROGEN, BLOOD 17 mg/dL (7-18)
[2016-10-03 00:17] LABS: INR 1.06 (0.87-1.13); PROTHROMBIN TIME 11.4 SECS (9.5-12.7)
[2016-10-03 00:20] LABS: TROPONIN I 0.189 ng/mL (0.00-0.056)
[2016-10-03 00:23] LABS: APPEARANCE,URINE CLEAR (CLEAR); BILIRUBIN,URINE NEGATIVE (NEGATIVE); BLOOD, URINE 1+ Ery/uL (NEGATIVE); COLOR,URINE YELLOW (YELLOW); KETONES,URINE NEGATIVE (NEGATIVE); LEUKOCYTE ESTERASE ,URINE 2+ (NEGATIVE); NITRITE, URINE NEGATIVE (NEGATIVE); PROTEIN,URINE 1+ mg/dl (NEGATIVE); UGLUCOSE NEGATIVE (NEGATIVE); UROBILINOGEN,URINE 0.2 EU/dL (0.2)
[2016-10-03 00:25] LABS: ALANINE AMINOTRANSFERASE 56 U/L (12-78); ALBUMIN 3.3 g/dL (3.4-5.0); ALKALINE PHOSPHATASE 86 U/L (46-116); ASPARTATE AMINOTRANSFERASE 37 U/L (15-37); B-TYPE NATRIURETIC PEPTIDE 53 PG/ML (0-125); BILIRUBIN,TOTAL 0.2 mg/dL (0.2-1.0); TOTAL PROTEIN, SERUM 8.5 g/dL (6.4-8.2)
[2016-10-03] MEDS ORDERED: IV NS 0.9% 1,000 ML BAG IV ONE ×2 (00:30)
[2016-10-03 00:55] LABS: BAND % (MANUAL) 6 % (0.0-5.0); LYMPHOCYTES % (MANUAL) 5 % (16-48); MONOCYTES % (MANUAL) 2 % (0-11.0); NEUTROPHILS % (MANUAL) 87 (42-76)
[2016-10-03 00:58] LABS: BACTERIA,URINE Moderate /HPF (None Seen); SQUAMOUS EPITHELIAL CELL,UR Few /HPF (None Seen); WBC,URINE 51-80 /HPF (0-3)
[2016-10-03] MEDS ORDERED: ASPIRIN 325 MG TABLET ONE (00:59)
[2016-10-03] MEDS ORDERED: ASPIRIN 325 MG TABLET PO ONE (01:00)
--- NOTE | 2016-10-03 01:03 | NUR ---
dr young called per dr pierson.
[2016-10-03] MEDS ORDERED: AZTREONAM 1 G VIAL ONE ×2 (01:12→06:01)
--- NOTE | 2016-10-03 01:29 | NUR ---
Report given to Mely GARCIA for [facility] admission and marcelino.
[2016-10-03] MEDS ORDERED: AZTREONAM 1 G in IV NS 0.9% 100 ML IV ONE (01:30)
[2016-10-03] MEDS ORDERED: LEVOFLOXACIN 750 MG /D5W 150ML PIGGYBACK IV ONE (01:30)
--- NOTE | 2016-10-03 01:33 | NUR ---
transferred patient to [facility] floor 314-2 via als protocol, no incident noted.
--- NOTE | 2016-10-03 01:40 | NUR ---
DO RN ADMITTING NOTES PATIENT ARRIVED ON UNIT VIA GURNEY FROM ER TO RM 114-2. RECEIVED REPORT FROM JUNE RN. PATIENT AWAKE, OBTUNDED. REACTS TO SOME TACTILE STIMULI. TRACH INTACT W/ VENT SETTINGS SIMV 10, TV 500, FIO2 40%, PEEP 5. NO RESPIRATORY DISTRESS, O2 SAT @ 97-99%. ON TELE SINUS RHYTHM W/ PULSES PRESENT. SKIN WARM TO TOUCH AND SLIGHTLY MOIST. SOME SKIN ISSUES NOTED W/ PICTURES TAKEN. G-TUBE INTACT AND FLUSHING WELL, NO RESIDUAL NOTED. CLAMPED @ THIS TIME. BOWEL SOUNDS PRESENT. KRUGER CATH INTACT AND DRAINING CLEAR, YELLOW URINE. LEFT FOOT IV #20 PATENT W/ DRESSING CDI. NO S/S OF PAIN OR DISCOMFORT @ THIS TIME. SAFETY MEASURES IN PLACE W/ SIDE RAILS UP, BED LOCKED IN LOWEST POSITION. SEIZURE PRECAUTIONS IN PLACE. WILL CONTINUE TO MONITOR.
[2016-10-03] MEDS: IV NS 0.9% 1,000 ML IV PRN ×2 (02:14→16:29)
[2016-10-03] MEDS: LEVOFLOXACIN 750 MG /D5W 150ML 750 MG in PREMIX 1 EA IV SCH (02:19)
[2016-10-03] MEDS ORDERED: POTASSIUM CHLORIDE 10 MEQ/50 ML PREMIXED IVPB FOR PERIPHERAL LINE IV ONE (02:30)
[2016-10-03] MEDS ORDERED: FIBERSOURCE HN 1,000 ML BOTTLE GT PRN ×2 (02:30→03:00)
--- NOTE | 2016-10-03 02:32 | NUR ---
DO RN NOTES RECEIVED NEW ORDERS FROM DR. MADDOX TO CONTINUE GTF FROM FACILITY, INFORMED REGARDING POTASSIUM LEVEL 3.4 WITH ORDERS TO REPLACE WITH KCL IV ONE BAG. NOTED AND CARRIED OUT. WILL CONTINUE TO MONITOR.
[2016-10-03] MEDS ORDERED: POTASSIUM CL. PREMIX PERIPHER. 50 ML ONE (04:11)
[2016-10-03] MEDS: AZTREONAM 2 G in IV NS 0.9% 100 ML IV SCH ×3 (06:07→17:00)
[2016-10-03 06:31] LABS: APPEARANCE,URINE CLEAR (CLEAR); BILIRUBIN,URINE NEGATIVE (NEGATIVE); BLOOD, URINE 1+ Ery/uL (NEGATIVE); COLOR,URINE YELLOW (YELLOW); KETONES,URINE NEGATIVE (NEGATIVE); LEUKOCYTE ESTERASE ,URINE 1+ (NEGATIVE); NITRITE, URINE NEGATIVE (NEGATIVE); PH,URINE 7.5 (5.0-8.0); PROTEIN,URINE NEGATIVE (NEGATIVE); UGLUCOSE NEGATIVE (NEGATIVE); UROBILINOGEN,URINE 0.2 EU/dL (0.2)
[2016-10-03 06:52] LABS: BACTERIA,URINE Few /HPF (None Seen)
--- NOTE | 2016-10-03 07:15 | NUR ---
DO RN NOTES RECEIVED PATIENT OBTUNDED , NON VERBAL , NOT IN ACUTE DISTRESS , RESPIRATIONS EVEN AND UNLABORED , SPO2 OF 10% VIA MECHANICAL VENTILATOR SETTINGS ORDERED , TRACH IN PLACE , SR 75 ON TELE MONITOR , FC DRAINING WELL VIA GRAVITY WITH CLEAR YELLOW URINE , GT PATENT AND INTACT WITH GTF OF FIBERSOURCE @ 50ML/HR INFUSING WELL WITH NO RESIDUALS NOTED , IV OF L FOOT # 20 PATENT AND INTACT WITH NS @ 75ML/HR INFUSING WELL , ALL NEEDS ATTENDED , BED ON LOW AND LOCKED POSITION , SIDE RAILS X2 , HOB @ 45 WILL CONTINUE TO MONITOR
[2016-10-03 07:38] LABS: EOSINOPHILS % (AUTO) 0.1 % (0.0-6.0); HEMATOCRIT 29 % (33-45); HEMOGLOBIN 9.5 g/dL (11.5-14.8); LYMPHOCYTES # (AUTO) 1.5 /CMM (0.8-4.8); LYMPHOCYTES % (AUTO) 4.9 % (20.0-44.0); MEAN CORPUSCULAR HEMOGLOBIN 31 PG (26.0-33.0); MEAN CORPUSCULAR HGB CONC 33 g/dl (31.0-36.0); MEAN CORPUSCULAR VOLUME 92 fL (82-100); MONOCYTES # (AUTO) 0.9 /CMM (0.1-1.30); MONOCYTES % (AUTO) 2.9 % (2.0-12.0); NEUTROPHILS # (AUTO) 27.6 /CMM (1.8-8.9); NEUTROPHILS % (AUTO) 92.1 % (43.0-81.0); PLATELET COUNT (AUTO) 329 /CMM (150-450); RDW COEFFICIENT OF VARIATION 16.9 (11.5-15.0); RED BLOOD CELL COUNT(AUTO) 3.11 MIL/uL (4.0-5.2)
[2016-10-03 08:11] LABS: ALBUMIN 2.8 g/dL (3.4-5.0); BILIRUBIN,TOTAL 0.2 mg/dL (0.2-1.0); CALCIUM, SERUM 8.7 mg/dL (8.5-10.1); CREATININE 0.6 mg/dL (0.6-1.3); POTASSIUM 3.8 mmol/L (3.5-5.1); TOTAL PROTEIN, SERUM 7.6 g/dL (6.4-8.2)
[2016-10-03 08:15] LABS: BAND % (MANUAL) 6 % (0.0-5.0); EOSINOPHILS % (MANUAL) 1 % (0-4); LYMPHOCYTES % (MANUAL) 7 % (16-48); NEUTROPHILS % (MANUAL) 86 (42-76)
--- NOTE | 2016-10-03 08:22 | NUR ---
WOUND CARE CONSULT: PT PRESENTS WITH IMMOBILITY, INCONTINENCE OF STOOL AND CONTRACTED LOWER EXTREMITIES. PT IS VENT DEPENDENT. PT ON STEPHIE ISOFLEX LOW AIRLOSS BED. SACRAL SCARRING NOTED WELL LEFT AND RT HAND SCARS. RT HAND HAS FRAGILE HEALED AREA. RECOMMENDATIONS MADE FOR SKIN PROTECTION. DISCUSSED WITH NURSING STAFF. PT TO BE TURNED AND REPOSITIONED EVERY 2 HRS PT CONDITION PERMITS, HEELS FLOATED. WILL SEE PRN. DOMINGUEZ IN AGREEMENT WITH PLAN OF CARE. Addendum: 10/03/16 at 0826 by DENICE HICKMAN WNDNU Amended: Links added.
[2016-10-03] MEDS ORDERED: Z GUARD REMEDY 2 OZ OINT TP PRN (08:30)
[2016-10-03] MEDS: Z GUARD REMEDY 2 OZ OINT TP SCH (08:42)
[2016-10-03] MEDS ORDERED: MAGNESIUM HYDROXIDE 30 ML UDC GT PRN (09:30)
[2016-10-03] MEDS ORDERED: BISACODYL SUPP (10 MG) 10 MG/SUPP.RECT SUPP.RECT RC PRN (09:30)
[2016-10-03] MEDS ORDERED: LACTOSE FREE FOOD GT SCH (09:30)
[2016-10-03] MEDS ORDERED: IPRATROPIUM NEB FS 0.5 MG/2.5 ML AMPUL.NEB IH PRN (09:30)
[2016-10-03] MEDS ORDERED: ALBUTEROL FS 2.5 MG/3 ML VIAL.NEB IH PRN (09:30)
[2016-10-03] MEDS ORDERED: [UNRECOGNIZED DRUG - OTHER] GT SCH (09:30)
[2016-10-03] MEDS ORDERED: NA PHOS,M-B/NA PHOS,DI-BA 1 EA ENEMA RC PRN (09:30)
[2016-10-03] MEDS ORDERED: LORAZEPAM 1 MG TABLET GT PRN (09:30)
[2016-10-03] MEDS ORDERED: ACETAMINOPHEN 650 MG/20.3 ML UDC GT PRN (09:30)
[2016-10-03] MEDS ORDERED: CLONIDINE HCL 0.1 MG TABLET GT PRN (09:30)
[2016-10-03] MEDS ORDERED: FIBER GT SCH (09:30)
[2016-10-03] MEDS ORDERED: LEVETIRACETAM (250 MG) 250 MG TABLET PO SCH (09:35)
--- NOTE | 2016-10-03 09:43 | NUR ---
DO RN NOTES DR MCGOVERN SEEN AND EVALUATED THE PT , DISCUSSED LABS , VENT SETTINGS , CHEST XRAY RESULT AND PT CHIEF COMPLAINT AND DX , , AFEBRILE , V/S MD CHRISTIN AWARE
[2016-10-03] MEDS ORDERED: OXCARBAZEPINE 150 MG TABLET PO SCH (10:00)
[2016-10-03] MEDS: DEXAMETHASONE 1 MG TABLET GT SCH ×2 (10:22→16:24)
[2016-10-03] MEDS: CHOLECALCIFEROL 1,000 UNIT TABLET (VIT D3) GT SCH (10:22)
[2016-10-03] MEDS: DOCUSATE SODIUM LIQ 100 MG/10 ML UDC GT SCH (10:22)
[2016-10-03] MEDS: ALBUTEROL FS 2.5 MG/3 ML VIAL.NEB IH SCH ×2 (13:30→19:52)
[2016-10-03] MEDS: IPRATROPIUM NEB FS 0.5 MG/2.5 ML AMPUL.NEB IH SCH ×2 (13:30→19:52)
[2016-10-03] MEDS: FIBERSOURCE HN 1,000 ML BOTTLE GT PRN (16:23)
[2016-10-03] MEDS: METOPROLOL TARTRATE 25 MG TABLET GT SCH (16:24)
[2016-10-03] MEDS ORDERED: Medication Not On Formulary EA (Cran/Vitc/Mannose/Inulin/Brom (Uti-Stat Liquid) 30 ML) GT SCH (17:00)
--- NOTE | 2016-10-03 18:20 | NUR ---
DO RN NOTES SEEN AND EVALUATED BY SOHAN SANDOVAL SOLDERING MACHINE FEEDER , DISCUSSED LABS , DIAGNOSIS AND CHIEF COMPLAINT , NO DIARRHEA , AFEBRILE , V/S STABLE , PENDING CULTURES , VERIFIED IF SHE WANTS TO ADD SPUTUM CULTURE , SOLDERING MACHINE FEEDER AWARE
[2016-10-03] MEDS ORDERED: FEE PK DOSING 1 MIN EA MC ONE (18:39)
[2016-10-03] MEDS ORDERED: PIPERACILLIN /TAZOBACTAM 3.375 G in IV D5W 50 ML IV SCH (19:00)
[2016-10-03] MEDS ORDERED: VANCOMYCIN 1 GM in IV D5W 250 ML IV SCH (19:00)
[2016-10-03] MEDS: PIPERACILLIN /TAZOBACTAM 3.375 G in IV D5W 50 ML IV SCH (20:00)
--- NOTE | 2016-10-03 20:00 | NUR ---
Received patient obtunded.With trach to vent on SIMV mode.vent settings well tolerated. Rhonchi bilaterally on auscultation.Suctioned small amount white secretion.SPO2 100%. SR 85.vs stable.Hemodynamically stable.GT feeding in progress.No residual noted.HOB elevated.IVF infusing to EULALIA Midline site intact.FC to gravity drainage with clear yellow urine. Turned and repositioned per skin care protocol.No distress noted.Continue monitoring.
[2016-10-03] MEDS: VANCOMYCIN 1 GM in IV D5W 250 ML IV SCH (20:30)
--- NOTE | 2016-10-03 20:30 | NUR ---
Dr Bundy in to eval patient.Orders received and carried out.
[2016-10-03] MEDS: LEVETIRACETAM SOL (5 ML) 100 MG/ML UDC GT SCH (20:35)
[2016-10-03] MEDS: OXCARBAZEPINE 150 MG TABLET GT SCH (20:36)
--- NOTE | 2016-10-03 22:30 | NUR ---
Patient incontinent of soft brown stool.Perineal care done.Bathed and complete linens changed.With perineal excoriation noted.Remedy Z guard ointment applied.Turned and repositioned.No distress noted.
--- NOTE | 2016-10-03 23:40 | NUR ---
Patient resting in no distress.Report given to Eliu Fonseca RN for continuity of care.
--- NOTE | 2016-10-03 23:58 | NUR ---
DO RN NOTE ASSUMED CARE FOR THE PT. PT IN BED OBTUNDED, EYES OPEN. ON VENT/TRACH TOLERATING THE SETTINGS WELL. SUCTIONED HER VERY SMALL AMOUNT OF SECRETIONS NOTED. IVF NS @100 ML/HR INFUSING WELL, NO S/S OF INFILTRATION NOTED. GTF FIBERSOURCE INFUSING WELL @ 70 ML/HR, 0 ML RESIDUAL NOTED. ON TELE SR HR 83. SIDE RAILS UP X 3 AND CALL LIGHT WITHIN REACH. VSS. CONTINUE TO MONITOR HER.
[2016-10-04] VITALS (7 sets, daily range): BP systolic 96–124; BP diastolic 49–73
[2016-10-04] MEDS: ALBUTEROL FS 2.5 MG/3 ML VIAL.NEB IH SCH ×4 (01:01→19:46)
[2016-10-04] MEDS: IPRATROPIUM NEB FS 0.5 MG/2.5 ML AMPUL.NEB IH SCH ×4 (01:01→19:46)
[2016-10-04] MEDS: PIPERACILLIN /TAZOBACTAM 3.375 G in IV D5W 50 ML IV SCH ×4 (01:46→21:59)
[2016-10-04] MEDS ORDERED: LEVOFLOXACIN 750 MG /D5W 150ML 750 MG in PREMIX 1 EA IV SCH (02:00)
[2016-10-04] MEDS: LEVOFLOXACIN 750 MG /D5W 150ML 750 MG in PREMIX 1 EA IV SCH (02:27)
[2016-10-04] MEDS: VANCOMYCIN 1 GM in IV D5W 250 ML IV SCH ×3 (04:24→19:32)
[2016-10-04 06:39] LABS: BASOPHILS # (AUTO) 0.1 /CMM (0.0-0.2); BASOPHILS % (AUTO) 0.3 % (0.0-2.0); EOSINOPHILS # (AUTO) 0.1 /CMM (0.0-0.7); EOSINOPHILS % (AUTO) 0.6 % (0.0-6.0); HEMATOCRIT 28 % (33-45); HEMOGLOBIN 9.6 g/dL (11.5-14.8); LYMPHOCYTES # (AUTO) 2.1 /CMM (0.8-4.8); LYMPHOCYTES % (AUTO) 11.7 % (20.0-44.0); MEAN CORPUSCULAR HEMOGLOBIN 31 PG (26.0-33.0); MEAN CORPUSCULAR HGB CONC 34 g/dl (31.0-36.0); MEAN CORPUSCULAR VOLUME 91 fL (82-100); MONOCYTES % (AUTO) 5.3 % (2.0-12.0); NEUTROPHILS # (AUTO) 15.1 /CMM (1.8-8.9); NEUTROPHILS % (AUTO) 82.1 % (43.0-81.0); PLATELET COUNT (AUTO) 345 /CMM (150-450); RDW COEFFICIENT OF VARIATION 16.9 (11.5-15.0); RED BLOOD CELL COUNT(AUTO) 3.09 MIL/uL (4.0-5.2); WHITE BLOOD COUNT (AUTO) 18.4 K/uL (4.3-11.0)
--- NOTE | 2016-10-04 06:43 | NUR ---
DO RN NOTE PT IN BED OBTUNDED. NO DISTRESS OR DISCOMFORT NOTED. NO S/S OF PAIN NOTED. IVF AND GTF INFUSING WELL, ALL NEEDS ATTENDED. ON TELE SR HR 86. SIDE RAIL UP X 3 AND CALL LIGHT WITHIN REACH. WILL ENDORSE TO DAY SHIFT NURSE FOR CONTINUE TO CARE.
--- NOTE | 2016-10-04 07:05 | NUR ---
RN INITIAL NOTES RECEIVED PT IN BED, HOB ELEVATED. ON [facility] VENT WITH FF SETTINGS: AC10, TV500, FI02 40%, PEEP+5. TRACH IN PLACE. NO RESPIRATORY DISTRESS NOTED. NO SIGNS OF PAIN NOTED. EULALIA MIDLINE IN PLACE. TOLERATING NS AT 100ML/HR. GT IN PLACE. TOLERATING FIBERSOURCE AT 70ML/HR. NO RESIDUAL NOTED. FC IN PLACE. NO HEMATURIA NOR SEDIMENTS NOTED. BLE ELEVATED. PT COMFORTABLE. WILL MONITOR.
[2016-10-04 07:31] LABS: CREATININE 0.6 mg/dL (0.6-1.3); MAGNESIUM 1.7 mg/dL (1.8-2.4); PHOSPHORUS 2.8 mg/dL (2.5-4.9); POTASSIUM 3.7 mmol/L (3.5-5.1)
[2016-10-04] MEDS: DEXAMETHASONE 1 MG TABLET GT SCH ×2 (08:10→16:24)
[2016-10-04] MEDS: CHOLECALCIFEROL 1,000 UNIT TABLET (VIT D3) GT SCH (08:10)
[2016-10-04] MEDS: LEVETIRACETAM SOL (5 ML) 100 MG/ML UDC GT SCH ×2 (08:10→21:59)
[2016-10-04] MEDS: DOCUSATE SODIUM LIQ 100 MG/10 ML UDC GT SCH (08:10)
[2016-10-04] MEDS: OXCARBAZEPINE 150 MG TABLET GT SCH ×2 (08:10→21:59)
[2016-10-04] MEDS: METOPROLOL TARTRATE 25 MG TABLET GT SCH ×2 (08:11→16:24)
[2016-10-04] MEDS: Z GUARD REMEDY 2 OZ OINT TP SCH (08:11)
[2016-10-04] MEDS: FIBERSOURCE HN 1,000 ML BOTTLE GT PRN (09:44)
[2016-10-04] MEDS: IV NS 0.9% 1,000 ML IV PRN (09:44)
[2016-10-04] MEDS ORDERED: Magnesium 1GM/D5W 100ML PREMIX 100 ML IV SCH (11:30)
--- NOTE | 2016-10-04 18:35 | NUR ---
RN CLOSING NOTES PT REMAINS STABLE. NO RESPIRATORY DISTRESS NOTED. KEPT HOB ELEVATED. NO SIGNS OF PAIN NOTED. TOLERATING VENT. GT IN PLACE. TOLERATING GTF WELL. IV LINE IN PLACE. TOLERATING IVF. FC IN PLACE. ADEQUATE OUTPUT NOTED. KEPT CLEAN AND DRY. REPOSITIONED Q2. BLE ELEVATED. KEPT COMFORTABLE. WILL ENDORSE FOR CONTINUITY OF CARE.
--- NOTE | 2016-10-04 19:05 | NUR ---
DO RN OPENING NOTES RECEIVED REPORT FROM AM RN. PATIENT OBTUNDED, OPENS AND CLOSES EYES SPONTANEOUSLY. TRACH INTACT W/ VENT SETTINGS SIMV 10, TV 500, FIO2 40%, PEEP 5. NO RESPIRATORY DISTRESS NOTED. ON TELE SINUS RHYTHM W/ PULSES PRESENT. SKIN WARM TO TOUCH. RIGHT UPPER ARM MIDLINE INTACT AND PATENT W/ DRESSING CDI. IV FLUIDS RUNNING @ 100 ML/HR. G-TUBE INTACT, PATENT AND FLUSHING WELL W/ GTF FIBERSOURCE @ 70 ML/HR. NO RESIDUAL NOTED. KRUGER CATH INTACT AND DRAINING YELLOW URINE. SAFETY MEASURES IN PLACE W/ SIDE RAILS UP, BED LOCKED IN LOWEST POSITION. WILL CONTINUE TO MONITOR.
--- NOTE | 2016-10-04 19:46 | NUR ---
PT RCVD ON [facility] VENT WITH NOTED SETTINGS. VENT ALARM WORKING AND AUDIBLE,VENT PLUGGED INTO RED OUTLET. TRACH SECURE IN AND IN PROPER POSITION, CUFF CHECKED ENCODING MACHINE OPERATOR. SXN MODERATE AMOUNT OF PALE YELLOW THICK SECRETIONS. EQUAL BILATERAL BREATH SOUNDS NOTED. NO RESPIRATORY DISTRESS NOTED AT THIS TIME. AMBU BAG AT [facility], WILL CONTINUE TO MONITOR THE PT.
[2016-10-05] VITALS (7 sets, daily range): BP systolic 96–129; BP diastolic 57–72
[2016-10-05] MEDS: IV NS 0.9% 1,000 ML IV PRN ×2 (00:21→17:41)
[2016-10-05] MEDS: PIPERACILLIN /TAZOBACTAM 3.375 G in IV D5W 50 ML IV SCH ×4 (01:31→20:13)
[2016-10-05] MEDS: IPRATROPIUM NEB FS 0.5 MG/2.5 ML AMPUL.NEB IH SCH ×4 (01:39→19:36)
[2016-10-05] MEDS: ALBUTEROL FS 2.5 MG/3 ML VIAL.NEB IH SCH ×4 (01:40→19:36)
[2016-10-05] MEDS: LEVOFLOXACIN 750 MG /D5W 150ML 750 MG in PREMIX 1 EA IV SCH (03:36)
[2016-10-05] MEDS: VANCOMYCIN 1 GM in IV D5W 250 ML IV SCH ×3 (05:16→20:13)
[2016-10-05] MEDS: FIBERSOURCE HN 1,000 ML BOTTLE GT PRN ×2 (05:43→21:44)
[2016-10-05 07:06] LABS: BASOPHILS % (AUTO) 0.1 % (0.0-2.0); EOSINOPHILS # (AUTO) 0.2 /CMM (0.0-0.7); EOSINOPHILS % (AUTO) 1.4 % (0.0-6.0); HEMATOCRIT 29 % (33-45); HEMOGLOBIN 9.7 g/dL (11.5-14.8); LYMPHOCYTES # (AUTO) 2.5 /CMM (0.8-4.8); LYMPHOCYTES % (AUTO) 19.4 % (20.0-44.0); MEAN CORPUSCULAR HEMOGLOBIN 31 PG (26.0-33.0); MEAN CORPUSCULAR HGB CONC 34 g/dl (31.0-36.0); MEAN CORPUSCULAR VOLUME 91 fL (82-100); MONOCYTES # (AUTO) 0.9 /CMM (0.1-1.30); MONOCYTES % (AUTO) 6.8 % (2.0-12.0); NEUTROPHILS # (AUTO) 9.5 /CMM (1.8-8.9); NEUTROPHILS % (AUTO) 72.3 % (43.0-81.0); PLATELET COUNT (AUTO) 326 /CMM (150-450); RED BLOOD CELL COUNT(AUTO) 3.19 MIL/uL (4.0-5.2); WHITE BLOOD COUNT (AUTO) 13.1 K/uL (4.3-11.0)
[2016-10-05 07:30] LABS: CALCIUM, SERUM 8.9 mg/dL (8.5-10.1); CREATININE 0.7 mg/dL (0.6-1.3); POTASSIUM 3.6 mmol/L (3.5-5.1)
--- NOTE | 2016-10-05 07:56 | NUR ---
DO RN NOTES AWAKE IN BED. OBTUNDED. UNABLE TO FOLLOW COMMANDS.TRACH TO VENT SETTING ORDERED. AMBU BAG AT BS. TELE SR 65. F/C YELLOW TO GRAVITY. TF ORDERED. HOB ELEVATED. RUE ML IV. CONT IVF ORDERED. BED IN LOW LOCKED POSITION. SAFETY MEASURES PROVIDED. RT CURRENTLY AT BS PROVIDING TX. CALL LIGHT W/IN REACH. WILL CONT TO MONITOR CLOSELY.
[2016-10-05] MEDS: LEVETIRACETAM SOL (5 ML) 100 MG/ML UDC GT SCH ×2 (08:24→20:13)
[2016-10-05] MEDS: DOCUSATE SODIUM LIQ 100 MG/10 ML UDC GT SCH (08:24)
[2016-10-05] MEDS: OXCARBAZEPINE 150 MG TABLET GT SCH ×2 (08:24→20:13)
[2016-10-05] MEDS: METOPROLOL TARTRATE 25 MG TABLET GT SCH ×2 (08:25→16:37)
[2016-10-05] MEDS: CHOLECALCIFEROL 1,000 UNIT TABLET (VIT D3) GT SCH (08:25)
[2016-10-05] MEDS: Z GUARD REMEDY 2 OZ OINT TP SCH (08:26)
[2016-10-05] MEDS: DEXAMETHASONE 1 MG TABLET GT SCH ×2 (08:27→16:37)
--- NOTE | 2016-10-05 11:25 | NUR ---
DO RN NOTES Pt AT RISK FOR SELF INJURY. PULLED OFF BLUE TRACH TUBING. LESS RESTRICTIVE MEASURES ATTEMPTED. NOTIFIED DR. MADDOX FOR ORDER TO APPLY MITTENS TO RIGHT HAND. CALLED FAMILY. Addendum: 10/05/16 at 1131 by BHARATH MILLS RN MOTHER "ALFRED" NOTIFIED RASTA MITTEN RESTRAINT.
--- NOTE | 2016-10-05 11:57 | NUR ---
DO RN NOTE T 100.3 TYLENOL COOLING MEASURE
--- NOTE | 2016-10-05 13:34 | NUR ---
RT RECEIVED PT TRACH'D ON [facility] VENT WITH SETTINGS PER MD ORDER. WEED CUTTER DONE. BILAT RHONCHI BREATH SOUNDS ON AUSCULTATION. VENT PLUGGED INTO RED OUTLET. AMBU BAG AT BEDSIDE. BREATHING TX'S GIVEN ORDERED. NO ADVERSE REACTIONS OBSERVED. TRACH SECURED AND AIRWAY PATENT. SUCTIONED SMALL AMOUNTS OF THICK PALE/YELLOW SECRETIONS. NO SIGNS OF DISTRESS NOTED. WILL CONTINUE TO MONITOR THE PATIENT FOR ANY CHANGES. Addendum: 10/05/16 at 1829 by LILI LO RT Amended: Links added.
--- NOTE | 2016-10-05 15:00 | NUR ---
DO RN NOTE PT RESTING COMFORTABLY. PT PROVIDED W/ TOTAL CARE BED BATH, TURNING, TRACH DEEP SUCTION, ORAL CARE.
--- NOTE | 2016-10-05 18:33 | NUR ---
DO RN NOTES RESTING COMFORTABLY. NO SOB. ON VENT SETTING ORDERED. TURNED AND REPOSITIONING.
--- NOTE | 2016-10-05 18:38 | NUR ---
DO RN NOTES RICKY RN RAW STOCK DYEING MACHINE TENDER ID AWARE TEMP 100.3 BLOOD CULT DONE 10/02. TYLENOL GIVEN. AFEBRILE AT THIS TIME. NO NEW ORDERS. WILL CONT TO MONITOR.
[2016-10-05] MEDS: FLUCONAZOLE (100 MG) 100 MG TABLET PO SCH (19:24)
[2016-10-06] VITALS: BP 116/64
--- NOTE | 2016-10-06 00:46 | NUR ---
RN:TD: DR MADDOX AT THE BEDSIDE. NO NEW ORDERS. WILL CONTINUE TO MONITOR.
[2016-10-06] MEDS: IPRATROPIUM NEB FS 0.5 MG/2.5 ML AMPUL.NEB IH SCH ×3 (01:34→13:25)
[2016-10-06] MEDS: ALBUTEROL FS 2.5 MG/3 ML VIAL.NEB IH SCH ×3 (01:34→13:25)
[2016-10-06] MEDS: PIPERACILLIN /TAZOBACTAM 3.375 G in IV D5W 50 ML IV SCH ×3 (02:21→13:59)
[2016-10-06] MEDS: LEVOFLOXACIN 750 MG /D5W 150ML 750 MG in PREMIX 1 EA IV SCH (02:21)
[2016-10-06 04:00] VITALS: BP 111/61
[2016-10-06] MEDS: VANCOMYCIN 1 GM in IV D5W 250 ML IV SCH ×2 (04:19→11:52)
[2016-10-06 06:18] LABS: BASOPHILS % (AUTO) 0.2 % (0.0-2.0); EOSINOPHILS # (AUTO) 0.2 /CMM (0.0-0.7); EOSINOPHILS % (AUTO) 1.3 % (0.0-6.0); HEMATOCRIT 31 % (33-45); HEMOGLOBIN 10.1 g/dL (11.5-14.8); LYMPHOCYTES # (AUTO) 2.6 /CMM (0.8-4.8); LYMPHOCYTES % (AUTO) 19.7 % (20.0-44.0); MEAN CORPUSCULAR HEMOGLOBIN 31 PG (26.0-33.0); MEAN CORPUSCULAR HGB CONC 33 g/dl (31.0-36.0); MEAN CORPUSCULAR VOLUME 93 fL (82-100); MONOCYTES # (AUTO) 0.9 /CMM (0.1-1.30); MONOCYTES % (AUTO) 6.7 % (2.0-12.0); NEUTROPHILS # (AUTO) 9.6 /CMM (1.8-8.9); NEUTROPHILS % (AUTO) 72.1 % (43.0-81.0); PLATELET COUNT (AUTO) 356 /CMM (150-450); WHITE BLOOD COUNT (AUTO) 13.3 K/uL (4.3-11.0)
[2016-10-06 07:15] LABS: CALCIUM, SERUM 9.3 mg/dL (8.5-10.1); CREATININE 0.6 mg/dL (0.6-1.3); POTASSIUM 4.1 mmol/L (3.5-5.1)
--- NOTE | 2016-10-06 07:20 | NUR ---
DO INITIAL NOTE RECEIVED PT IN BED, OBTUNDED, PT IS ON [facility] VENT, PORTEX #7 SIMV 10 AC 500 FIO2 40% PEEP 5, SATING 100%, NO S/S OF RESP.DISTRESS OR SOB NOTED AT THIS TIME, PT IS ON TELE MONITOR SHOWING SR @85 BPM, NO S/S OF CHEST PAIN OR DISCOMFORT AT THIS TIME, PT HAS F/C DRAINING URINE TO GRAVITY, PT HAS GTUBE, INTACT/PATENT, FLUSHING WELL, RUNNING FIBERSOURCE @70ML/HR, TOLERATING WELL, PT HAS EULALIA MIDLINE LINE C/D/I/PATENT, FLUSHING WELL, RUNNING NS @100ML/HR, NO S/S OF INFECTION/ INFILTRATION NOTED AT THIS TIME, PT IS NOTED WITH MULTIPLE SKIN ISSUES NOTED, ALL SAFETY MEASURES IN PLACE AT ALL TIMES, CALL LIGHT WITHIN EASY REACH, WILL MONITOR PT CLOSELY FOR CHANGES
[2016-10-06 08:00] VITALS: BP_SYST 115; BP_SYST 131; BP_DIAS 65; BP_DIAS 72
[2016-10-06] MEDS: IV NS 0.9% 1,000 ML IV PRN (08:33)
[2016-10-06] MEDS: LEVETIRACETAM SOL (5 ML) 100 MG/ML UDC GT SCH (08:35)
[2016-10-06] MEDS: CHOLECALCIFEROL 1,000 UNIT TABLET (VIT D3) GT SCH (08:35)
[2016-10-06] MEDS: DOCUSATE SODIUM LIQ 100 MG/10 ML UDC GT SCH (08:35)
[2016-10-06] MEDS: DEXAMETHASONE 1 MG TABLET GT SCH ×2 (08:35→17:50)
[2016-10-06] MEDS: OXCARBAZEPINE 150 MG TABLET GT SCH (08:36)
[2016-10-06] MEDS: METOPROLOL TARTRATE 25 MG TABLET GT SCH ×2 (08:36→17:00)
[2016-10-06] MEDS: Z GUARD REMEDY 2 OZ OINT TP SCH (08:37)
[2016-10-06] MEDS: FLUCONAZOLE (100 MG) 100 MG TABLET PO SCH (08:39)
[2016-10-06 10:30] LABS: ABG OXYGEN SATURATION 98.6 % (92.0-98.5); ABG PCO2 32.6 mmHg (35.0-45.0); ABG PH 7.453 (7.350-7.450); ABG PO2 163.1 mmHg (75.0-100.0); AaDO2 84.6 mmHg; COHb 0.1 % (0.5-1.5); MetHb 0.7 % (0.0-1.5); O2Hb 97.8 % (94.0-97.0); SITE, ABG Right Radial; VENT MODE, BG cpap +5 40% ps15
[2016-10-06 12:00] VITALS: BP 103/60
--- NOTE | 2016-10-06 14:30 | NUR ---
DO NOTE REPORT GIVEN TO FABIAN FOR JENI
[2016-10-06 16:00] VITALS: BP 109/52
[2016-10-06 17:00] VITALS: BP 109/52
--- NOTE | 2016-10-06 17:47 | NUR ---
PT PLACED ON 40% COOL AEROSOL PER MD ORDER ALEX WELL AT THIS TIME.
--- NOTE | 2016-10-06 19:00 | NUR ---
CABLE TELEVISION LINE TECHNICIANELECTRICAL ENGINEERING DRAFTING OFFICER NOTES: PT DC'D TO [place] ORDERED. DC DOCUMENTS AND INSTRUCTIONS GIVEN TO SACHA EMT. REPORT GIVEN TO JOSE VO. WOUND PHOTOS TAKEN AND PLACED IN CHART, WOUND CARE DONE. PER RN TO KEEP EULALIA MIDLINE FOR CONTINUATION OF IV ABX. IV ACCESS KEPT PATENT & INTACT W/ NO S/SX OF INFECTION/INFILTRATION. FC REMOVED PER RN. TELEMONITOR REMOVED. PEG KEPT PATENT & INTACT, DRESSING DRY. PT TOLERATED COOL AEROSOL SETTING, FIO2 40%, VIA TRACH, SATURATING AT 97%. SECRETIONS SUCTIONED. TRACH CARE DONE. ID BAND REMOVED. PT LEFT FACILITY IN STABLE CONDITION [place]IED BY 2 CULINARY ARTS INSTRUCTOR AND RT. PT NOT IN ANY DISTRESS, REMAINS OBTUNDED, AND OPENS EYES SPONTANEOUSLY. NO CONCERNS/ ISSUES NOTED UPON DC.
== END 2016-10-06 20:39 | DRG 137 ==
LOC: ER 23:42 → TELE-TD 10-03 01:19 → TELE1 10-06 13:36
PROVIDERS: ADMIT Internal Medicine Rheumatology; ATTEND Internal Medicine Rheumatology
PROC: 05H533Z Insertion of Infusion Device into Right Subclavian Vein, Percutaneous Approach (ICD-10-PCS; principal; 2016-10-03)
PROC: 5A1945Z Respiratory Ventilation, 24-96 Consecutive Hours (ICD-10-PCS; principal; 2016-10-03)
DX: J95.851 Ventilator associated pneumonia (principal); J96.21 Acute and chronic respiratory failure with hypoxia; A41.9 Sepsis, unspecified organism; G93.40 Encephalopathy, unspecified; Z99.11 Dependence on respirator [ventilator] status; J18.9 Pneumonia, unspecified organism; G91.9 Hydrocephalus, unspecified; R13.10 Dysphagia, unspecified; Z98.2 Presence of cerebrospinal fluid drainage device; Z87.820 Personal history of traumatic brain injury; Z86.718 Personal history of other venous thrombosis and embolism; K59.00 Constipation, unspecified; N20.0 Calculus of kidney; G40.909 Epilepsy, unspecified, not intractable, without status epilepticus; F09 Unspecified mental disorder due to known physiological condition; F41.9 Anxiety disorder, unspecified; I10 Essential (primary) hypertension; M62.40 Contracture of muscle, unspecified site; N13.30 Unspecified hydronephrosis; B37.9 Candidiasis, unspecified; Z93.1 Gastrostomy status; Z93.0 Tracheostomy status; Y84.8 Other medical procedures as the cause of abnormal reaction of the patient, or of later complication, without mention of misadventure at the time of the procedure; Y92.129 Unspecified place in nursing home as the place of occurrence of the external cause
CPT/HCPCS: 31720; 36415; 36600; 71010-TC; 76700-TC; 80048-TC; 80076-TC; 80202-TC; 81000-TC; 83605-TC; 83735-TC; 83880; 84100-TC; 84484-TC; 85025-TC; 85652-TC; 85730-TC; 87040-TC; 87081-TC; 87086-TC; 87186-TC; 94002-TC; 94003-TC; 94762-TC; 99082-TC; A4216; A4606; A6402; J1953; J1956; J2543; J3370; J3475; J3480; J3490; J7030; J7060; J8540; Z7610

== ENCOUNTER 2016-12-01 16:11 | Inpatient (IN) | payer OTHER ==
[~2016-12-01] VITALS: Ht 157.5 cm; Wt 56.8 kg
[2016-12-01] VITALS (23 sets, daily range): BP systolic 45–120; BP diastolic 57–78
[2016-12-01] MEDS ORDERED: PROPOFOL 100 ML IV ONE (16:15)
--- NOTE | 2016-12-01 16:15 | NUR ---
MARKUS BARFIELD FROM [facility] CALLED 911 - FOR TAHCYCARDIA AND FEVER SINCE 1000 AM TODAY. REPORTED TEMP. 103F ; TYLENOL GT GIVEN PER REPORT. PATIENT TACHYCARDIC, TACHYPNIC, VENT/TRACH DEPENDENT. RECTAL TEMP 104.7. NEW IV STARTED ON RAC, 20 G. BLOOD DRAWN AND SENT TO LAB. SAFETY AND COMFORT MEASURES IN PLACE. AT BEDSIDE FOR EVAL.
[2016-12-01] MEDS: PROPOFOL 100 ML IV PRN ×2 (16:25→16:50)
--- NOTE | 2016-12-01 16:25 | NUR ---
PROPOFOL STARTED PER MD ORDERS.
[2016-12-01] MEDS ORDERED: PIPERACILLIN /TAZOBACTAM 3.375 G in IV D5W 50 ML IV ONE (16:30)
[2016-12-01] MEDS ORDERED: VANCOMYCIN 1 GM in IV D5W 250 ML IV ONE (16:30)
[2016-12-01] MEDS ORDERED: IV NS 0.9% 1,000 ML BAG IV ONE (16:30)
[2016-12-01] MEDS ORDERED: LEVE100S GT (16:34)
[2016-12-01 16:36] LABS: BASOPHILS # (AUTO) 0.1 /CMM (0.0-0.2); BASOPHILS % (AUTO) 0.3 % (0.0-2.0); HEMATOCRIT 37 % (33-45); LYMPHOCYTES # (AUTO) 4.4 /CMM (0.8-4.8); LYMPHOCYTES % (AUTO) 12.2 % (20.0-44.0); MEAN CORPUSCULAR HEMOGLOBIN 29 PG (26.0-33.0); MEAN CORPUSCULAR HGB CONC 32 g/dl (31.0-36.0); MEAN CORPUSCULAR VOLUME 90 fL (82-100); MONOCYTES # (AUTO) 1.2 /CMM (0.1-1.30); MONOCYTES % (AUTO) 3.3 % (2.0-12.0); NEUTROPHILS # (AUTO) 30.7 /CMM (1.8-8.9); NEUTROPHILS % (AUTO) 84.2 % (43.0-81.0); PLATELET COUNT (AUTO) 480 /CMM (150-450); RDW COEFFICIENT OF VARIATION 15.8 (11.5-15.0); RED BLOOD CELL COUNT(AUTO) 4.14 MIL/uL (4.0-5.2)
[2016-12-01 16:39] LABS: WHITE BLOOD COUNT (AUTO) 36.4 K/uL (4.3-11.0)
[2016-12-01 16:49] LABS: INR 1.02 (0.87-1.13); PROTHROMBIN TIME 10.6 SECS (9.5-12.7)
[2016-12-01] MEDS ORDERED: IBUPROFEN SUSP 100 MG/5 ML UDC ONE (16:52)
--- NOTE | 2016-12-01 16:52 | NUR ---
ELECTRONIC SYSTEM ENGINEER AT BEDSIDE
[2016-12-01 16:53] LABS: CALCIUM, SERUM 10.2 mg/dL (8.5-10.1); CARBON DIOXIDE 12 mmol/L (21-32); CHLORIDE 97 mmol/L (98-107); CREATININE 1.4 mg/dL (0.6-1.3); GLUCOSE 338 mg/dL (74-106); POTASSIUM 4.7 mmol/L (3.5-5.1); SODIUM SERUM 136 mmol/L (136-145); TROPONIN I 0.203 ng/mL (0.00-0.056); UREA NITROGEN, BLOOD 13 mg/dL (7-18)
[2016-12-01] MEDS ORDERED: IBUPROFEN 100 MG/5 ML PO PRN (17:00)
[2016-12-01 17:06] LABS: ALANINE AMINOTRANSFERASE 33 U/L (12-78); ALBUMIN 3.3 g/dL (3.4-5.0); ALKALINE PHOSPHATASE 93 U/L (46-116); ASPARTATE AMINOTRANSFERASE 20 U/L (15-37); BILIRUBIN,TOTAL 0.1 mg/dL (0.2-1.0); TOTAL PROTEIN, SERUM 9.1 g/dL (6.4-8.2)
--- NOTE | 2016-12-01 17:06 | NUR ---
RT NOTE PT PLACED ON VENT PER MD ORDER. PT HAS PORTEX [address] CUFFED [address]UBE IN PLACE. CUFF INFLATED. SETTINGS PRESCRIBED. ALARMS SET PER PROTOCOL AND AUDIBLE. AMBU BAG AT BED SIDE. NO DISTRESS NOTED. WILL CONTINUE TO MONITOR. Addendum: 12/01/16 at 1708 by RODGER ZAMORA RT Amended: Links added.
--- NOTE | 2016-12-01 17:16 | NUR ---
16 FR lemos catheter inserted per sterile protocal. Immediate output 170ML of urine, yellow color, cloudy clarity
[2016-12-01 17:21] LABS: ABG OXYGEN SATURATION 99.2 % (92.0-98.5); ABG PCO2 34.5 mmHg (35.0-45.0); ABG PH 7.318 (7.350-7.450); ABG PO2 510.1 mmHg (75.0-100.0); AaDO2 168.4 mmHg; COHb 0.3 % (0.5-1.5); MetHb 0.6 % (0.0-1.5); O2Hb 98.3 % (94.0-97.0); PEEP,BG 5 cm H2O; SITE, ABG Right Radial; VENT MODE, BG AC 16 600 +5 100%; VT, ABG 500 mL
--- NOTE | 2016-12-01 17:24 | NUR ---
PATIENT ASSIGNED TO ICU 254
[2016-12-01 17:37] LABS: APPEARANCE,URINE Cloudy (CLEAR); BILIRUBIN,URINE Negative (NEGATIVE); BLOOD, URINE Large Ery/uL (NEGATIVE); COLOR,URINE Yellow (YELLOW); KETONES,URINE Negative (NEGATIVE); LEUKOCYTE ESTERASE ,URINE Large (NEGATIVE); NITRITE, URINE Negative (NEGATIVE); PROTEIN,URINE 100 mg/dl (NEGATIVE); UGLUCOSE Negative (NEGATIVE); UROBILINOGEN,URINE 0.2 EU/dL (0.2)
[2016-12-01 17:45] LABS: BAND % (MANUAL) 2 % (0.0-5.0); BASOPHILS % (MANUAL) 0 % (0.0-2.0); EOSINOPHILS % (MANUAL) 0 % (0-4); LYMPHOCYTES % (MANUAL) 12 % (16-48); MONOCYTES % (MANUAL) 3 % (0-11.0); NEUTROPHILS % (MANUAL) 83 (42-76)
[2016-12-01 17:47] LABS: BACTERIA,URINE Many /HPF (None Seen); RBC,URINE 21-50 /HPF (0-2); SQUAMOUS EPITHELIAL CELL,UR Many /HPF (None Seen); URINE AMORPHOUS URATE Many /HPF (None Seen); WBC,URINE 21-50 /HPF (0-3)
--- NOTE | 2016-12-01 17:53 | NUR ---
PAGED DR MISAEL MADDOX
--- NOTE | 2016-12-01 17:56 | NUR ---
REPORT GIVEN TO RAINA GARCIA FOR ADMISSION.
--- NOTE | 2016-12-01 18:00 | NUR ---
REPAGED DR MADDOX
--- NOTE | 2016-12-01 18:27 | NUR ---
REPAGED DR MADDOX
--- NOTE | 2016-12-01 18:39 | NUR ---
DR SALDANA ON THE PHONE WITH DR MADDOX
--- NOTE | 2016-12-01 18:55 | NUR ---
ICU/RN PT ADMITTED FROM ER.TRACH. ON THE VENT AC MODE.FIO2-50%.V/S STABLE.T-99.1.PT IS VEGETATIVE STATE ,EYES OPEN .G-TUBE CLAMPED.ON DIPRIVAN DRIP AT 5 MCG/KG/MIN.F/C DRAINING WITH CLOUDY YELLOW URINE.PT IS CONTRACTED.PLACED ON MONITOR -SINUS RHYTHM. CONTINUE MONITORING.
--- NOTE | 2016-12-01 19:05 | NUR ---
PATIENT TRANSPORTED TO [facility] VIA ACLS PROTOCOL FOR ADMISSION. RNRAINA TO PROVIDE JENI.
--- NOTE | 2016-12-01 20:00 | NUR ---
ELECTRONIC SERVICE TECHNICIAN NOTES RECEIVED PT IN BED, OPENS EYES SPONTANEOUSLY, DOES NOT FOLLOW COMMAND. WITHDRAWS TO PAIN STIMULI. TELE READS SR AT 80 BPM. ON VENT VIA TRACH AT AC 16, TV 500, FIO2 50%, PEEP 5, ALEX WELL. O2 SAT AT 99%, WILL ASK RT TO ATTEMPT TO TITRATE FIO2 DOWN. G-TUBE IN PLACE, CLAMPED, NO RESIDUAL. KRUGER CATH IN PLACE, DRAINING TO CLOUDY YELLOW URINE. IV SITES AT RAC 20G AND RIGHT FOOT 22G, RUNNING PROPOFOL AT 5 MCG/KG/MIN. PT IS CALM AND RELAXED, NO S/S OF PAIN. HOB ELEVATED, SIDE RAILS X3, TURNED AND REPOSITIONED. PER AM RN AWAITING CALL FROM DR MADDOX FOR ADMISSION ORDERS.
--- NOTE | 2016-12-01 21:30 | NUR ---
HIV CTS SPECIALIST NOTES NO CALL RECEIVED FROM DR TAN MD PAGED FOR ADMISSION ORDERS.
--- NOTE | 2016-12-01 21:45 | NUR ---
HAND FLATWORK FINISHER NOTES NO CALLBACK FROM DR MADDOX YET, PAGED AGAIN.
--- NOTE | 2016-12-01 22:10 | NUR ---
TORTILLA MAKER NOTES STILL NO CALLBACK FROM DR MADDOX. PAGED 3RD TIME.
[2016-12-01] MEDS ORDERED: PIPERACILLIN /TAZOBACTAM 3.375 G in IV D5W 50 ML IV SCH (23:00)
[2016-12-01] MEDS ORDERED: FIBERSOURCE HN 1,000 ML BOTTLE GT PRN (23:00)
--- NOTE | 2016-12-01 23:00 | NUR ---
PROJECT BUYER NOTES CALLBACK RECEIVED FROM DR MADDOX, ADMISSION ORDERS RECEIVED.
[2016-12-01] MEDS ORDERED: PIPERACILLIN /TAZOBACTAM 3.375 G VIAL IV ONE (23:11)
[2016-12-01] MEDS: IV NS 0.9% 1,000 ML IV PRN (23:35)
[2016-12-01] MEDS: PIPERACILLIN /TAZOBACTAM 3.375 G in IV D5W 50 ML IV SCH (23:36)
[2016-12-02] VITALS (40 sets, daily range): BP systolic 111–168; BP diastolic 61–108
[2016-12-02 04:56] LABS: BASOPHILS % (AUTO) 0.2 % (0.0-2.0); HEMATOCRIT 31 % (33-45); HEMOGLOBIN 10.2 g/dL (11.5-14.8); LYMPHOCYTES # (AUTO) 1.6 /CMM (0.8-4.8); LYMPHOCYTES % (AUTO) 9.6 % (20.0-44.0); MEAN CORPUSCULAR HEMOGLOBIN 29 PG (26.0-33.0); MEAN CORPUSCULAR HGB CONC 33 g/dl (31.0-36.0); MEAN CORPUSCULAR VOLUME 88 fL (82-100); MONOCYTES # (AUTO) 0.9 /CMM (0.1-1.30); MONOCYTES % (AUTO) 5.8 % (2.0-12.0); NEUTROPHILS # (AUTO) 13.8 /CMM (1.8-8.9); NEUTROPHILS % (AUTO) 84.4 % (43.0-81.0); PLATELET COUNT (AUTO) 321 /CMM (150-450); RDW COEFFICIENT OF VARIATION 15.7 (11.5-15.0); RED BLOOD CELL COUNT(AUTO) 3.48 MIL/uL (4.0-5.2); WHITE BLOOD COUNT (AUTO) 16.4 K/uL (4.3-11.0)
[2016-12-02] MEDS ORDERED: VANCOMYCIN 1 GM in IV D5W 250 ML IV ONE (05:00)
[2016-12-02 05:15] LABS: C-REACTIVE PROTEIN 1.9 mg/dL (0.0-0.9)
[2016-12-02 05:16] LABS: ALBUMIN 2.8 g/dL (3.4-5.0); BILIRUBIN,TOTAL 0.2 mg/dL (0.2-1.0); CALCIUM, SERUM 9.1 mg/dL (8.5-10.1); CREATININE 0.6 mg/dL (0.6-1.3); POTASSIUM 3.7 mmol/L (3.5-5.1); TOTAL PROTEIN, SERUM 7.6 g/dL (6.4-8.2)
--- NOTE | 2016-12-02 05:20 | NUR ---
GLUE DRIER OPERATOR NOTES 0500 PT HAD SEIZURE LASTING FOR 10 SECONDS. HR ELEVATED IN 140s. BP OF 168/88. O2 SAT WNL, 98%. WILL CONTINUE TO MONITOR. 0520 PT'S HR DECREASE TO 130 BPM. BP DECREASED TO 127/68. PT BODY TEMP OF 100.1 COOLING MEASURES RENDERED.
[2016-12-02] MEDS ORDERED: PIPERACILLIN /TAZOBACTAM 3.375 G VIAL IV ONE (05:58)
[2016-12-02] MEDS: PIPERACILLIN /TAZOBACTAM 3.375 G in IV D5W 50 ML IV SCH ×4 (05:58→23:57)
[2016-12-02] MEDS ORDERED: VANCOMYCIN 1 GM VIAL ONE (05:58)
--- NOTE | 2016-12-02 07:16 | NUR ---
PT REC'D ON VENT WITH SETTINGS CHARTED. PT IS ON VENT VIA PORTEX #7 TRACH. PT IS CURRENTLY TACHYCARDIC WELL TACHYPNEIC. RN AWARE. B/S BILAT. EQUAL AND COARSE. SX'D SCANT AMT OF THICK ELY SECRETIONS. VENT ALARMS ARE SET AND AUDIBLE PER POLICY. APNEA ALARM SET. VENT PLUGGED INTO RED OUTLET. AMBU BAG AT HOB. Addendum: 12/02/16 at 0721 by ALIS MAURICE RT Amended: Links added.
--- NOTE | 2016-12-02 08:17 | NUR ---
INITIAL SHIP BOSS NOTE RCVD PT WITH EYES OPEN SPONTANEOUSLY, UNABLE TO FOLLOW COMMANDS OR VISUALLY TRACK MOVEMENT, ST ON TELE. TOLERATING ORDERED VENT SETTINGS. G-TUBE PLACEMENT VERIFIED BY AUSCULTATION/ASPIRATION. NO RESIDUAL OBTAINED. KRUGER DRAINING TO GRAVITY, CLEAR, YELLOW URINE. NEVILLE MIDLINE AND RAC C/D/I/PATENT. RIGHT FOOT IV SITE DISCONTINUED. IVF INFUSING THROUGH ML. WILL CONTINUE TO MONITOR PT FOR SAFETY AND COMFORT. CALL LIGHT WITHIN REACH. BED IN LOW AND LOCKED POSITION. Addendum: 12/02/16 at 1157 by BROCK GLASGOW RN PT WAS FOUND TO HAVE A TEMP OF 101.3 ORALLY[address] COOLING MEASURES IN PLACE.
--- NOTE | 2016-12-02 08:37 | NUR ---
WEATHER REPORTER NOTE DR. VAZQUEZ AT BEDSIDE UPDATED ON PT'S CONDITION AND RECOMMENDED TYLENOL. ORDER RCVD AND CARRIED OUT.
[2016-12-02] MEDS: OXCARBAZEPINE 150 MG TABLET GT SCH ×2 (08:47→21:20)
[2016-12-02] MEDS: CHOLECALCIFEROL 1,000 UNIT TABLET (VIT D3) GT SCH (08:47)
[2016-12-02] MEDS: LEVETIRACETAM SOL (5 ML) 100 MG/ML UDC GT SCH ×2 (08:47→21:20)
[2016-12-02] MEDS: HEPARIN SODIUM, PORCINE 5000 UNITS/1 ML VIAL SQ SCH ×2 (08:48→21:22)
[2016-12-02] MEDS ORDERED: FEE PK DOSING 1 MIN EA MC ONE (08:50)
[2016-12-02] MEDS: ACETAMINOPHEN 650 MG/20.3 ML UDC NG PRN ×3 (08:59→18:24)
[2016-12-02] MEDS ORDERED: DEXAMETHASONE SOLN 1 MG/1 ML UDC GT SCH (09:00)
--- NOTE | 2016-12-02 10:08 | NUR ---
BUS STARTER NOTE PT'S TEMP DECREASED TO 99.6 AFTER TYLENOL AND COOLING MEASURES IN PLACE WILL CONTINUE TO MONITOR.
[2016-12-02] MEDS: VANCOMYCIN 0.75 GM in IV D5W 250 ML IV SCH ×2 (12:37→18:04)
[2016-12-02] MEDS: IV NS 0.9% 1,000 ML IV PRN (12:58)
[2016-12-02] MEDS ORDERED: Z GUARD REMEDY 2 OZ OINT TP PRN (13:00)
--- NOTE | 2016-12-02 15:17 | NUR ---
SWIMMING INSTRUCTOR NOTE DIETITIAN IN UNIT RECOMMENDED TO INCREASE TUBE FEEDING RATE TO 55ML/HR.
[2016-12-02] MEDS: FIBERSOURCE HN 1,000 ML BOTTLE GT PRN (17:09)
[2016-12-02] MEDS: DEXAMETHASONE 1 MG TABLET GT SCH (17:09)
--- NOTE | 2016-12-02 18:15 | NUR ---
POWER MULE OPERATOR NOTE PT REMAINS STABLE SR/ST ON TELE, TOLERATING ORDERED VENT SETTINGS. KRUGER TO GRAVITY DRAINING YELLOW URINE. IV ACCESSES C/D/I/PATENT. IVF INFUSING TO NEVILLE MIDLINE. NO S/O INFILTRATION/PHLEBITIS OBSERVED. PT'S CARE WILL BE ENDORSED TO EMPLOYMENT SECURITY OFFICER RN FOR CONTINUITY OF CARE. Addendum: 12/02/16 at 1817 by BROCK GLASGOW RN PT TOLERATING ORDERED TUBE FEEDING RATE.
--- NOTE | 2016-12-02 18:34 | NUR ---
OBSTETRICS SPECIALIST NOTE PT'S TEMP 100.9 TYLENOL ADMINISTERED. WILL ENDORSE PT'S CARE TO SPECIAL EDUCATION TEACHING ASSISTANT RN.
--- NOTE | 2016-12-02 21:00 | NUR ---
REPEAT CHIEF - REC'D VERBAL REPORT FROM RNNIRAV. REC'D PT. NONVERBAL,TRACH TO VENT W/SETTINGS AT AC-16,TV-500,40% & PEEP 5. RHONCHI THRU-OUT LUNG DYSON. PT.IS CONTRACTED TO BILAT.HANDS/ELBOWS & BLE'S. LOW GRADE TEMPS. ALL PULSES PALPABLE X 4 EXT. LEFT MIDLINE & RAC PIV-HAVE ALL PORTS PATENT TO FLUSH. NO MAJOR WOUNDS, PT. HAS ALOT OF GRAFT SITES. KRUGER TO GRAVITY. PEG HAS FIBER - SOURCE INFUSING AT MAX/55 CC/HR. W/TACTILE STIM, PT'S SBP'S & HR INCREASES. W/ RELAXATION-SR/NO ECTOPY & SBP'S ARE WNR. PT.S EYES ARE OPEN,NO TRACKING NOTED. CONT.POC.
[2016-12-03] VITALS (38 sets, daily range): BP systolic 106–146; BP diastolic 54–110
--- NOTE | 2016-12-03 | NUR ---
AUTOMOTIVE TIRE TESTER - HERE AT 23:30. ORDERS REC'D. STATUS UPDATE GIVEN TO
[2016-12-03] MEDS: VANCOMYCIN 0.75 GM in IV D5W 250 ML IV SCH ×4 (00:28→20:41)
[2016-12-03 04:46] LABS: BASOPHILS % (AUTO) 0.4 % (0.0-2.0); HEMATOCRIT 26 % (33-45); HEMOGLOBIN 8.8 g/dL (11.5-14.8); LYMPHOCYTES # (AUTO) 2.1 /CMM (0.8-4.8); LYMPHOCYTES % (AUTO) 19.6 % (20.0-44.0); MEAN CORPUSCULAR HEMOGLOBIN 30 PG (26.0-33.0); MEAN CORPUSCULAR HGB CONC 34 g/dl (31.0-36.0); MEAN CORPUSCULAR VOLUME 89 fL (82-100); MONOCYTES # (AUTO) 0.8 /CMM (0.1-1.30); MONOCYTES % (AUTO) 7.9 % (2.0-12.0); NEUTROPHILS # (AUTO) 7.8 /CMM (1.8-8.9); NEUTROPHILS % (AUTO) 72.1 % (43.0-81.0); PLATELET COUNT (AUTO) 256 /CMM (150-450); RDW COEFFICIENT OF VARIATION 15.4 (11.5-15.0); RED BLOOD CELL COUNT(AUTO) 2.98 MIL/uL (4.0-5.2); WHITE BLOOD COUNT (AUTO) 10.8 K/uL (4.3-11.0)
[2016-12-03 04:55] LABS: CALCIUM, SERUM 8.7 mg/dL (8.5-10.1); CREATININE 0.5 mg/dL (0.6-1.3); POTASSIUM 3.2 mmol/L (3.5-5.1)
[2016-12-03] MEDS: PIPERACILLIN /TAZOBACTAM 3.375 G in IV D5W 50 ML IV SCH ×4 (05:15→23:18)
[2016-12-03] MEDS: IV NS 0.9% 1,000 ML IV PRN ×2 (06:05→22:52)
--- NOTE | 2016-12-03 06:30 | NUR ---
REHAB OFFICE COORDINATOR - COMPLETE BEDBATH ADM. [facility] IVPB ADM. GOOD UOP VIA KRUGER-1150 CC FOR THIS 12 HR SHIFT. TEMPS STAYED IN THE 99'S. COOLING MEASURES WERE USED THRU-OUT THE NIGHT IE:FAN,ICE PACKS,ETC. AWAITING AM LAB RESULTS. NO CRITICAL VALUES PHONED. NO CHANGES FROM PREVIOUS ASSESSMENTS. CONT.POC.
--- NOTE | 2016-12-03 07:15 | NUR ---
MANAGER AGRICULTURE - VERBAL REPORT ENDORSED TO GEM GARCIA. CONT. POC.
--- NOTE | 2016-12-03 08:00 | NUR ---
PT OBTUNDED, LOCALIZES PAIN. VSS WNL OFF PRESSORS. LABS REPORTED WILL REPLACE PER PHARMACY PROTOCOL.
[2016-12-03] MEDS: DEXAMETHASONE 1 MG TABLET GT SCH ×2 (09:52→16:58)
[2016-12-03] MEDS: CHOLECALCIFEROL 1,000 UNIT TABLET (VIT D3) GT SCH (09:52)
[2016-12-03] MEDS: OXCARBAZEPINE 150 MG TABLET GT SCH ×2 (09:52→20:42)
[2016-12-03] MEDS: LEVETIRACETAM SOL (5 ML) 100 MG/ML UDC GT SCH ×2 (09:52→20:41)
[2016-12-03] MEDS: HEPARIN SODIUM, PORCINE 5000 UNITS/1 ML VIAL SQ SCH ×2 (09:53→20:43)
--- NOTE | 2016-12-03 10:00 | NUR ---
LIQUID DIARRHEA NOTED FLEXI SEAL PLACED.
[2016-12-03] MEDS: POTASSIUM CHLORIDE 20 MEQ POWDER PACKET NG SCH ×2 (12:32→12:33)
--- NOTE | 2016-12-03 16:00 | NUR ---
FILL BED BATH SKIN CARE
[2016-12-03] MEDS: FIBERSOURCE HN 1,000 ML BOTTLE GT PRN (17:02)
[2016-12-03] MEDS: ACETAMINOPHEN 650 MG/20.3 ML UDC NG PRN (17:04)
--- NOTE | 2016-12-03 17:43 | NUR ---
DR. MADDOX ON THE UNIT WRITES ORDERS FOR CBC, BMP, UA AND ABDOMINAL US (ASSESS FOR KIDNEY STONES) FOR TOMORROW. ORDERS PUT INTO [facility].
--- NOTE | 2016-12-03 20:28 | NUR ---
received pt from day shift, obtunded, opens eyes at times, responds to touch and pain stimuli, SR, on the vent, lungs diminished, no edema, f/c OK output, rectal tube diarrhea possible cdiff, stool sent, GT to feeding tolerates well, v/s stable, no pain, pt turned and repositioned.
[2016-12-03 22:09] LABS: APPEARANCE,URINE CLEAR (CLEAR); BILIRUBIN,URINE NEGATIVE (NEGATIVE); BLOOD, URINE 2+ Ery/uL (NEGATIVE); COLOR,URINE YELLOW (YELLOW); KETONES,URINE NEGATIVE (NEGATIVE); LEUKOCYTE ESTERASE ,URINE TRACE (NEGATIVE); NITRITE, URINE NEGATIVE (NEGATIVE); PH,URINE 7.5 (5.0-8.0); PROTEIN,URINE TRACE mg/dl (NEGATIVE); UGLUCOSE NEGATIVE (NEGATIVE); UROBILINOGEN,URINE 0.2 EU/dL (0.2)
[2016-12-03 22:16] LABS: BACTERIA,URINE Few /HPF (None Seen); SQUAMOUS EPITHELIAL CELL,UR Few /HPF (None Seen)
[2016-12-04] VITALS (20 sets, daily range): BP systolic 102–131; BP diastolic 66–89
--- NOTE | 2016-12-04 00:08 | NUR ---
pt is resting in the bed, v/s stable, no pain, pt turned and repositioned q2hrs.
[2016-12-04] MEDS: VANCOMYCIN 0.75 GM in IV D5W 250 ML IV SCH ×2 (04:02→12:57)
--- NOTE | 2016-12-04 04:12 | NUR ---
pt is resting in the bed, obtunded, SR, no acute distress overnight, tolerates feeding, good urine output, v/s stable, no pain, pt cleaned, changed and repositioned q2hrs.
[2016-12-04 04:20] LABS: BASOPHILS % (AUTO) 0.4 % (0.0-2.0); EOSINOPHILS # (AUTO) 0.3 /CMM (0.0-0.7); EOSINOPHILS % (AUTO) 3.4 % (0.0-6.0); HEMATOCRIT 28 % (33-45); HEMOGLOBIN 9.6 g/dL (11.5-14.8); LYMPHOCYTES # (AUTO) 3.3 /CMM (0.8-4.8); MEAN CORPUSCULAR HEMOGLOBIN 30 PG (26.0-33.0); MEAN CORPUSCULAR HGB CONC 34 g/dl (31.0-36.0); MEAN CORPUSCULAR VOLUME 89 fL (82-100); MONOCYTES # (AUTO) 0.7 /CMM (0.1-1.30); MONOCYTES % (AUTO) 7.3 % (2.0-12.0); NEUTROPHILS # (AUTO) 5.6 /CMM (1.8-8.9); NEUTROPHILS % (AUTO) 55.9 % (43.0-81.0); PLATELET COUNT (AUTO) 285 /CMM (150-450); RDW COEFFICIENT OF VARIATION 15.6 (11.5-15.0); RED BLOOD CELL COUNT(AUTO) 3.19 MIL/uL (4.0-5.2)
[2016-12-04 04:28] LABS: CALCIUM, SERUM 9.2 mg/dL (8.5-10.1); CREATININE 0.7 mg/dL (0.6-1.3); POTASSIUM 3.7 mmol/L (3.5-5.1)
[2016-12-04] MEDS: PIPERACILLIN /TAZOBACTAM 3.375 G in IV D5W 50 ML IV SCH ×2 (05:08→12:57)
--- NOTE | 2016-12-04 08:00 | NUR ---
ORAL PATHOLOGIST; ASSESSMENT RECEIVED PT VENTED VIA TRACH SEE FLOW SHEET FOR VENT SETTINGS, PT OPENS EYES SPONTANEOUSLY BUT UNABLE TO TRACK OR FOLLOW COMMANDS. ZOE LOWER AND ZOE UPPER EXTREMITIES CONTRACTED. KRUGER CATH INTACT DRAINING TO GRAVITY. FLEXI-SEAL INTACT DRAINING LIQUID BROWN STOOL. PEG INTACT WITH TUBE FEEDING ABOUT 40ML OF RESIDUALS NOTED. NO ACUTE DISTRESS NOTED. WILL CONTINUE WITH POC.
[2016-12-04] MEDS: LEVETIRACETAM SOL (5 ML) 100 MG/ML UDC GT SCH (08:20)
[2016-12-04] MEDS: CHOLECALCIFEROL 1,000 UNIT TABLET (VIT D3) GT SCH (08:21)
[2016-12-04] MEDS: OXCARBAZEPINE 150 MG TABLET GT SCH (08:24)
[2016-12-04] MEDS: HEPARIN SODIUM, PORCINE 5000 UNITS/1 ML VIAL SQ SCH (08:25)
[2016-12-04] MEDS: DEXAMETHASONE 1 MG TABLET GT SCH (09:19)
--- NOTE | 2016-12-04 10:31 | NUR ---
ROOFING APPRENTICE; PRIMARY DR. MADDOX CALLED UPDATE WAS GIVEN. ORDERED GIVEN TO DISCHARGE PT BACK TO [facility] AND TO CONTINUE ANTIBIOTICS ZOSYN AND VANCOMYCIN X7DAYS. DISCUSSED WITH DR. MCGOVERN AND HE ALSO AGREES WITH DISCHARGE ORDERS.
--- NOTE | 2016-12-04 13:55 | NUR ---
ICU/RN PT D/C BACK TO [facility].V/S STABLE ,AFEBRILE.EMT AT BEDSIDE.REPORT GIVEN TO FADY/JOSE.
== END 2016-12-04 13:55 | DRG 720 ==
LOC: ER 16:14 → ICU 17:36
PROVIDERS: ADMIT Internal Medicine Rheumatology; ATTEND Internal Medicine Rheumatology
DX: A41.9 Sepsis, unspecified organism (principal); G93.1 Anoxic brain damage, not elsewhere classified; Z99.11 Dependence on respirator [ventilator] status; R40.3 Persistent vegetative state; J96.11 Chronic respiratory failure with hypoxia; Z93.0 Tracheostomy status; N39.0 Urinary tract infection, site not specified; Z98.2 Presence of cerebrospinal fluid drainage device; Z93.1 Gastrostomy status; Z87.820 Personal history of traumatic brain injury; G40.909 Epilepsy, unspecified, not intractable, without status epilepticus; R13.10 Dysphagia, unspecified; K59.00 Constipation, unspecified; I10 Essential (primary) hypertension; F41.9 Anxiety disorder, unspecified; Z79.899 Other long term (current) drug therapy
CPT/HCPCS: 31720; 36415; 36569; 36600; 71010-TC; 80048-TC; 80076-TC; 80202-TC; 81000-TC; 82803-TC; 82962-TC; 83605-TC; 84484-TC; 85025-TC; 85652-TC; 85730-TC; 86140-TC; 87040-TC; 87081-TC; 87086-TC; 94002-TC; 94003-TC; A4606; J1644; J1953; J2543; J3370; J3490; J7030; J7060; J8540; Z7610